=== PATIENT | male | born 1965 | race Caucasian/White ===

== ENCOUNTER 2016-10-25 10:42 | Inpatient (IN) | payer SELFPAY ==
[~2016-10-25] VITALS: Ht 167.6 cm; Wt 77.6 kg
[2016-10-25 11:49] LABS: HEMATOCRIT 41.8 % (42.0-54.0); HEMOGLOBIN 13.9 g/dL (13.5-17.5); MCH 33.1 pg (26.0-34.0); MCHC 33.3 g/dL (31.0-37.0); MCV 99.5 fL (80.0-100.0); PLATELET COUNT 340 10x3/uL (130-400); RDW 13.1 % (11.5-14.5); WBC 22.5 10x3/uL (4.8-10.8)
[2016-10-25 12:01] LABS: ALBUMIN 2.8 g/dL (3.4-5.0); ALKALINE PHOSPHATASE 110 U/L (46-116); ALT (SGPT) 45 U/L (10-68); BILIRUBIN - TOTAL 0.37 mg/dL (0.2-1.3); CALC OSMOLALITY 277 mosm/kg (275-300); CALCIUM 9.4 mg/dL (8.5-10.1); CARBON DIOXIDE 31.8 mmol/L (21.0-32.0); CHLORIDE - SERUM 103 mmol/L (98-107); CREATININE - SERUM 0.9 mg/dL (0.6-1.3); GLUCOSE 117 mg/dL (74-106); POTASSIUM - SERUM 3.9 mmol/L (3.5-5.1); PROTEIN - SERUM 7.5 g/dL (6.4-8.2); SODIUM 140 mmol/L (136-145); UREA NITROGEN 8 mg/dL (7-18); eGFR NON AFRICAN AMERICAN > 90 mL/min (90-120)
[2016-10-25 12:08] LABS: PRO BNP 451 pg/mL (0-125); TROPONIN-I < 0.017 ng/mL (0.000-0.060)
[2016-10-25 12:11] LABS: LYMPHOCYTES 8 % (15-50); MONOCYTES 3 % (2-11); NEUTROPHILS 84 % (40-80); PLATELET ESTIMATE NORMAL
[2016-10-25 16:56] VITALS: BP 159/81; Ht 167.6 cm; Wt 77.6 kg
--- NOTE | 2016-10-25 17:43 | NUR ---
1630- RECEIVED REPORT FROM RITA JACOB IN ER. AWAITING PT ARRIVAL. 1700- PT IS ALERT AND ORIENTED. UP AD AJAY. HX OF ASTHMA. 20G IV SEEN TO LEFT AC. CURRENTLY ON BI-PAP MACHINE. TEMP IS 100.9. DR. VAZ GAVE VERBAL ORDERS FOR TYLENOL. PT IS ON A REGULAR DIET. IV FLUIDS STARTED, NS RUNNING AT 100CC ORDERED. B/P IS 159/81, RR 18, 02 SAT IS 96%, PULSE RATE IS 110. QUICKSTART DONE, ADMISSION HX DONE, PT HAS NO HOME MEDS JUST OTC, ASSESSMENT DONE. WILL CONTINUE TO MONITOR. 1748- DR. LAFLEUR IS IN ROOM WITH PT NOW.
[2016-10-25 19:00] VITALS: BP 112/65
--- NOTE | 2016-10-25 20:13 | NUR ---
PT AWAKE, ALERT, ORIENTED, SITTING ON SIDE OF BED, DENIES ANY ACUTE NEEDS AT THIS TIME. CONTINUE TO MONITOR CLOSELY. BED LOW, CALL LIGHT IN REACH, SIDE RAILS X 2.
--- NOTE | 2016-10-25 23:38 | NUR ---
SPOKE WITH DR. LAFLEUR R/T OBTAINING AN ORDER FOR PRN SLEEP MED. DR. LAFLEUR ORDERED AMBIEN PO Q HS PRN. PT STATES HE IS NOT ALLERGIC, AND DID TAKE IT WITHOUT DIFFICULTY. HE HAD QUESTIONS ABOUT THE BIPAP AND THE REASON FOR IT. I DISCUSSED WITH PT AND HIS THE IMPORTANCE OF BIPAP AND THAT IT IS HELPING REDUCE THE CO2 IN HIS LUNGS R/T HIS INFLAMMATION AND CONSTRICTION. PT AGREED THAT HE UNDERSTANDS, AND DENIES ANY MORE QUESTIONS. CONTINUE TO MONITOR CLOSELY.
[2016-10-26] VITALS: BP 162/91
[2016-10-26 04:00] VITALS: BP 145/81
--- NOTE | 2016-10-26 05:33 | NUR ---
PT CAME TO THE NURSES DESK ASKING FOR THE NEAREST BATHROOM, STATING HIS IS ASLEEP IN THE CHAIR WHICH IS IN FRONT OF THE BATHROOM IN HIS ROOM AND HE DID NOT WANT TO WAKE HER. UPON RETURNING TO HIS ROOM, PT BECAME EXTREMELY DYSPNEIC, TACHYPNEIC, AND OVERALL UNABLE TO WALK ANY FURTHER. WE PLACED PT IN A WHEELCHAIR AND IMMEDIATELY MOVED HIM TO HIS ROOM. I PLACED HIS O2 VIA NC BACK ON HIM, AND INCREASED IT FROM 3LPM TO 5LPM BRINGING HIS O2 SAT UP TO 92%. PT STATED THIS DID HELP HIM FEEL BETTER. PT WAS TRANSFERRED BACK TO HIS BED AFTER APPROXIMATELY 5 MINUTES OF SITTING IN WHEEL CHAIR. I CALLED RESPIRATORY PT STATED HE THOUGHT HE WOULD BENEFIT FROM AN UPDRAFT, BUT RESP WAS UNABLE TO DO ANOTHER UPDRAFT AT THAT TIME BECAUSE IT WAS TOO EARLY. THEY DID PLACE PT BACK ON HIS BIPAP. PT IS CURRENTLY RESTING, IN NO ACUTE DISTRESS, BIPAP ON. CONTINUE TO MONITOR CLOSELY. PT WAS GIVEN A URINAL AND ASKED TO PLEASE NOT GET UP ANYMORE WITHOUT CALLING FOR ASSISTANCE FIRST. PT AGREED TO DO SO.
[2016-10-26 06:07] LABS: BASOPHILS 0.1 % (0.0-2.0); EOSINOPHILS 0 % (0-7); HEMATOCRIT 40.8 % (42.0-54.0); HEMOGLOBIN 13.2 g/dL (13.5-17.5); IMMATURE GRANULOCYTES 0.9 % (0-5); LYMPHOCYTES 3.7 % (15-50); MCH 32.4 pg (26.0-34.0); MCHC 32.4 g/dL (31.0-37.0); MEAN PLATELET VOLUME 9.9 fL (7.4-10.4); MONOCYTES 2.9 % (2-11); NEUTROPHILS 92.4 % (40-80); PLATELET COUNT 353 10x3/uL (130-400); RBC 4.08 10x6/uL (4.20-6.10); RDW 13.4 % (11.5-14.5)
[2016-10-26 06:16] LABS: CALC OSMOLALITY 279 mosm/kg (275-300); CARBON DIOXIDE 29.9 mmol/L (21.0-32.0); CHLORIDE - SERUM 102 mmol/L (98-107); CREATININE - SERUM 0.8 mg/dL (0.6-1.3); GLUCOSE 143 mg/dL (74-106); MAGNESIUM - SERUM 2.3 mg/dL (1.8-2.4); POTASSIUM - SERUM 4.3 mmol/L (3.5-5.1); SODIUM 139 mmol/L (136-145); eGFR NON AFRICAN AMERICAN > 90 mL/min (90-120)
[2016-10-26 06:25] LABS: UREA NITROGEN 12 mg/dL (7-18)
[2016-10-26 08:00] VITALS: BP 134/77
--- NOTE | 2016-10-26 08:00 | NUR ---
INTRODUCED MYSELF TO PT PRIMARY RN FOR TODAYS SHIFT. PT IS ALERT AND RESTING QUIETLY SITTING ON EDGE OF HIS BED. AT BEDSIDE. RR ARE SLIGHTLY LABORED WITH BIPAP IN PLACE. WHEEZING HEARD THROUGHOUT ALL LOBES. PT HAS A L.AC PIV FLUSHED AND IS PATENT, DRSG CDI AND SWAB CAPS IN USE. PT SUPPOSE TO HAVE NS FLUID INFUSING BUT REFUSED R/T NOT WANTING TO BE TIED DOWN. PT IS EATING AND DRINKING FLUIDS SO I KEPT HIM SL. PTS BREAKFAST TRAY HAS NOT BEEN DELIVERED SO I CALLED AND ORDERED PT A TRAY. PT VOICED THANKS AND DENIES ANY FURTHER NEEDS AT THIS TIME, CL IN REACH, WILL CPOC.
--- NOTE | 2016-10-26 08:34 | HP ---
PATIENT: KAUSHAL ARTHUR MEDICAL RECORD: [id number] ACCOUNT: [id number] LOCATION:[address] : [birth year] ADMISSION DATE: 10/25/16 HISTORY AND PHYSICAL EXAMINATION DATE OF ADMISSION: 10/25/2016 CHIEF COMPLAINT: Shortness of breath, wheeze, and malaise. HISTORY OF PRESENT ILLNESS: A 50-year-old white male, smoker, presented to the ER today with 1-week history of some shortness of breath, cough, wheeze, but really got worse yesterday with generalized malaise, aches and pains, difficulty getting out in a bed. He states he "can't breathe." He came in to the ER with a temperature of 99.5 and it went up to about 101. Chest x-ray did not show acute infiltrates. His white count was 22,500 and he is having a lot of wheezing. He is admitted for acute bronchitis and acute asthma exacerbation as a smoker as well as a history of hypertension. PAST MEDICAL AND SURGICAL HISTORY: He was told he had a hypertension about a year ago. He was started on medicine, but states he did not have a primary care doctor to follow back up with any lost of job. PAST SURGICAL HISTORY: None. ALLERGIES: AZITHROMYCIN. 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 He is . HABITS: He smokes about a half pack of cigarettes a day. Denies any alcohol or drug use. FAMILY HISTORY: Father at 52 of a blood clot after surgery. Mother is alive at 80 and she is on oxygen for COPD. HOME MEDICATIONS: None. REVIEW OF SYSTEMS: GENERAL: No major weight changes. HEENT: No particular sinus or allergy problems. RESPIRATORY: Long time smoker. Denies any past diagnosis of emphysema or asthma. CARDIAC: No chest pain or palpitations. GASTROINTESTINAL: No diarrhea, constipation or heartburn. GENITOURINARY: He is complaining of some pain in the left groin area especially when he coughs, he notices a bulge like a hernia. MUSCULOSKELETAL: No significant joint aches and pains. NEUROLOGIC: No headaches or seizure activity. PSYCHIATRIC: No depression or melancholia. PHYSICAL EXAMINATION: VITAL SIGNS: Temperature 100.9, pulse 110, respirations 22, blood pressure 159/81. GENERAL: He is awake and alert, currently on BiPaP. HEENT: Grossly within normal limits. NECK: Supple. No JVD or bruit. HISTORY AND PHYSICAL [id number] ARTHUR,KAUSHAL C HEART: Regular rate and rhythm. LUNGS: Diffuse wheeze bilaterally. ABDOMEN: Soft, flat with him lying down and coughing, feel a little bulge, but nothing significant at this time. EXTREMITIES: No edema. LABORATORY DATA: EKG sinus rhythm at 106 beats per minute. Chest x-ray, no acute infiltrate was seen. ABG showed pH 7.397, pCO2 of 48, pO2 of 59. D-dimer little elevated at 0.79. CBC with a white count of 22,500, hemoglobin 13.9, hematocrit 41.8; 82% polys, 5% bands. Basic metabolic panel is all within normal limits. Liver functions are all normal. Troponin is normal. ProBNP 451. ASSESSMENT: 1. Acute bronchitis. 2. Asthma exacerbation. 3. Hypertension. PLAN: We will admit. Dr. Coulter has already seen the patient for pulmonary, will give him respiratory treatments, start him on some antibiotics, monitor his blood pressure. Other tests and procedures as warranted. TRANSINT:[id number] Voice Confirmation ID: [id number] DOCUMENT ID: [id number] MEENU LAFLEUR MD at 0834 CC: [id number] DICTATION DATE: 10/25/161750 ARCHITECTURAL REPRESENTATIVE: 10/25/16 [address] [facility] [address] [place] [address]
[2016-10-26 09:05] VITALS: BP 159/95
--- NOTE | 2016-10-26 10:23 | NUR ---
PT RESTING IN BED C/O NOT WANTING TO WEAR HIS BIPAP. CALLED RT AND THEY PUT HIS NC BACK ON @5L. WILL CTM.
[2016-10-26 11:59] VITALS: BP 151/80
--- NOTE | 2016-10-26 13:14 | NUR ---
PT RESTING QUIETLY IN BED. PT HAS BEEN ABLE TO SPIT UP SOME THICK YELLOWISH SPUTUM. ENCOURAGED HIM TO CONTINUE DRINKING FLUIDS TO HELP LOOSEN SECRETIONS. PT VERBALIZED UNDERSTANDING. RR NONLABORED WITH NC @5L IN PLACE. CL IN REACH, NO FURTHER NEEDS AT THIS TIME. WILL CTM.
[2016-10-26 15:46] VITALS: BP 135/76
--- NOTE | 2016-10-26 20:08 | NUR ---
PT AWAKE, ALERT, ORIENTED, RECEIVING RESP UPDRAFT, COUGHING AND SPITTING UP LARGE AMOUNTS OF THICK, YELLOW, SPUTUM. I HAVE GIVEN PT A COLLECTION CUP FOR SPUTUM CULTURE. WILL CONTINUE TO MONITOR CLOSELY.
--- NOTE | 2016-10-26 22:01 | NUR ---
PT DID SHOWER THIS EVENING WITH GREAT EFFORT AND ASSISTED BY HIS . PT IS STILL VERY DYSPNEIC WITH MINIMAL EXERTION. CURRENTLY LYING IN BED, AWAKE, ALERT, ORIENTED, IN NO ACUTE DISTRESS, O2 VIA NC IN PLACE. I HAVE COLLECTED A SPUTUM SAMPLE FOR CULTURE. CONTINUE TO MONITOR CLOSELY. BED LOW, CALL LIGHT IN REACH, SIDE RAILS X 2, HOB 35 DEGREES.
--- NOTE | 2016-10-26 22:41 | NUR ---
PT CALLED C/O LARGE AMOUNTS OF BRIGHT RED BLOOD WITH HIS ATTEMPTED BM, NO STOOL PRESENT. PT STATES HE DOES HAVE HEMORRHOIDS, BUT IS NOT HAVING AND BURNING, PAIN, OR BLEEDING BEFORE NOW. PT STATES THERE WAS A LARGE AMOUNT OF BLOOD ON HIS TOILET PAPER WHEN HE WIPED. I GAVE PT A [place] HAT AND HE AGREED TO LET ME KNOW NEXT TIME HE HAS A BM. AT BEDSIDE. PTS LABS ARE STABLE, WILL RECHECK PRN. CONTINUE TO MONITOR CLOSELY. PRN AMBIEN GIVEN PER PTS REQUEST.
[2016-10-27] VITALS: BP 129/71
[2016-10-27 04:00] VITALS: BP 136/78
[2016-10-27 06:03] LABS: BASOPHILS 0.2 % (0.0-2.0); EOSINOPHILS 0.1 % (0-7); HEMATOCRIT 41.2 % (42.0-54.0); HEMOGLOBIN 13.2 g/dL (13.5-17.5); LYMPHOCYTES 12.1 % (15-50); MCH 32.9 pg (26.0-34.0); MCV 102.7 fL (80.0-100.0); MONOCYTES 8.2 % (2-11); NEUTROPHILS 78.4 % (40-80); PLATELET COUNT 366 10x3/uL (130-400); RBC 4.01 10x6/uL (4.20-6.10); RDW 13.7 % (11.5-14.5); WBC 20.8 10x3/uL (4.8-10.8)
[2016-10-27 06:10] LABS: CALC OSMOLALITY 283 mosm/kg (275-300); CALCIUM 8.5 mg/dL (8.5-10.1); CARBON DIOXIDE 33.1 mmol/L (21.0-32.0); CHLORIDE - SERUM 104 mmol/L (98-107); CREATININE - SERUM 0.9 mg/dL (0.6-1.3); GLUCOSE 104 mg/dL (74-106); MAGNESIUM - SERUM 2.1 mg/dL (1.8-2.4); POTASSIUM - SERUM 4.3 mmol/L (3.5-5.1); SODIUM 142 mmol/L (136-145); eGFR NON AFRICAN AMERICAN > 90 mL/min (90-120)
[2016-10-27 06:11] LABS: UREA NITROGEN 16 mg/dL (7-18)
[2016-10-27 07:46] VITALS: BP 129/70
--- NOTE | 2016-10-27 08:45 | NUR ---
PT SITTING UP IN BED RESTING QUIETLY RR NONLABORED WITH NC @5L IN PLACE. PT STATES HE SLEPT MUCH BETTER LAST NIGHT AND BREATHING IS GETTING BETTER. PT HAS NOT HAD A BM HE STATES HE FEELS CONSTIPATED. BS ARE ACTIVE X4 AND HE IS PASSING GAS. ABDOMEN SLIGHTLY DISTENDED AND TIGHT. WILL NOTIFY DOCTOR FOR A PRN SOFTNER. PT ALSO STATES HE HAS HEMORRHOIDS AND REQUESTED SOMETHING. WILL MAKE SURE DOCTOR MIQUEL IS AWARE. NO FURTHER NEEDS AT THIS TIME. CL IN REACH, BED IN LOWEST, SIDE RAILS X2. WILL CPOC.
[2016-10-27 11:37] VITALS: BP 123/78
--- NOTE | 2016-10-27 13:34 | NUR ---
CHANGED PTS L.AC PIV DRSG R/T IT BEING PEELED OFF. APPLIED NEW TEGADERM OVER INSERTION SITE. PIV FLUSHES WITHOUT ANY RESISTANCE AND IS SECURED TO ARM. NO FURTHER NEEDS AT THIS TIME. CL IN REACH, BED IN LOWEST, SIDE RAILS X2. WILL CTM.
--- NOTE | 2016-10-27 18:51 | NUR ---
PT RESTING QUIETLY IN BED DENIES ANY CURRENT PAIN OR NEEDS. CL IN REACH, BED IN LOWEST, SIDE RAILS X2. WILL CTM.
[2016-10-27 19:00] VITALS: BP 173/90
--- NOTE | 2016-10-27 19:33 | NUR ---
PT AWAKE, ALERT, ORIENTED, C/O HIS NOSE BEING STOPPED UP AND DRY. HE DOES HAVE FLONASE, BUT WANTING SOMETHING TO MOISTURIZE WELL. WILL ADD HUMIDITY TO O2 NC AND CALL FOR NS NOSE SPRAY ORDER. PT ALSO STATES HE IS DEVELOPING A HEADACHE. WILL GIVE PRN TYLENOL. CONTINUE TO MONITOR CLOSELY.
[2016-10-28] VITALS: BP 161/79
--- NOTE | 2016-10-28 02:24 | NUR ---
PT LYING IN BED, EYES CLOSED, RESPIRATIONS EVEN AND UNLABORED. CONTINUE TO MONITOR CLOSELY.
[2016-10-28 04:00] VITALS: BP 159/71
[2016-10-28 07:00] LABS: CALC OSMOLALITY 279 mosm/kg (275-300); CALCIUM 8.8 mg/dL (8.5-10.1); CARBON DIOXIDE 31.1 mmol/L (21.0-32.0); CHLORIDE - SERUM 99 mmol/L (98-107); CREATININE - SERUM 0.9 mg/dL (0.6-1.3); GLUCOSE 217 mg/dL (74-106); MAGNESIUM - SERUM 2.2 mg/dL (1.8-2.4); POTASSIUM - SERUM 4.1 mmol/L (3.5-5.1); SODIUM 136 mmol/L (136-145); UREA NITROGEN 14 mg/dL (7-18); eGFR NON AFRICAN AMERICAN > 90 mL/min (90-120)
[2016-10-28 07:07] LABS: BASOPHILS 0 % (0.0-2.0); EOSINOPHILS 0 % (0-7); HEMATOCRIT 42.2 % (42.0-54.0); HEMOGLOBIN 13.7 g/dL (13.5-17.5); IMMATURE GRANULOCYTES 0.8 % (0-5); LYMPHOCYTES 3.1 % (15-50); MCH 32.5 pg (26.0-34.0); MCHC 32.5 g/dL (31.0-37.0); MCV 100.2 fL (80.0-100.0); NEUTROPHILS 94.1 % (40-80); PLATELET COUNT 433 10x3/uL (130-400); RBC 4.21 10x6/uL (4.20-6.10); RDW 13.2 % (11.5-14.5); WBC 26.3 10x3/uL (4.8-10.8)
[2016-10-28 08:02] VITALS: BP 152/110
--- NOTE | 2016-10-28 10:23 | NUR ---
INSERTED 20 GUAGE PIV TO L.FA X1 ATTEMPT. TEGADERM IN PLACE, DATED AND INITIALED AND SWAB CAPS IN USE.
[2016-10-28 11:42] VITALS: BP 146/79
[2016-10-28 16:00] VITALS: BP 122/69
--- NOTE | 2016-10-28 19:20 | NUR ---
PT SITTING UP IN BED WATCHING TV. A/O. NO DISTRESS NOTED. STATES SOB IS IMPROVING. REQUEST H20. CALL LIGHT WITH IN REACH. WILL CONT. TO MONITOR.
[2016-10-28 20:00] VITALS: BP 153/88
--- NOTE | 2016-10-28 22:51 | NUR ---
PT LYING IN BED, AWAKE, ALERT, ORIENTED, IN NO ACUTE DISTRESS, DENIES ANY NEEDS. CONTINUE TO MONITOR CLOSELY. BED LOW, CALL LIGHT IN REACH, SIDE RAILS X 2, HOB 30 DEGREES.
[2016-10-29] VITALS: BP 141/75
--- NOTE | 2016-10-29 00:27 | NUR ---
PT REQUESTED HIS PRN ZOLPIDEM, DENIES ANY OTHER NEEDS. PT STATES HE IS FEELING MUCH BETTER, BUT STILL WEAK AND STILL EXPERIENCING ACUTE DYSPNEA WITH EXERTION. CONTINUE TO MONITOR CLOSELY. BED LOW, CALL LIGHT IN REACH, SIDE RAILS X 2, HOB 30 DEGREES.
[2016-10-29 04:00] VITALS: BP 163/90
[2016-10-29 06:16] LABS: BASOPHILS 0.1 % (0.0-2.0); EOSINOPHILS 0 % (0-7); HEMATOCRIT 42.2 % (42.0-54.0); IMMATURE GRANULOCYTES 0.9 % (0-5); LYMPHOCYTES 3.3 % (15-50); MCH 32.9 pg (26.0-34.0); MCHC 33.2 g/dL (31.0-37.0); MCV 99.1 fL (80.0-100.0); MEAN PLATELET VOLUME 9.8 fL (7.4-10.4); MONOCYTES 2.9 % (2-11); NEUTROPHILS 92.8 % (40-80); PLATELET COUNT 433 10x3/uL (130-400); RBC 4.26 10x6/uL (4.20-6.10); RDW 13.2 % (11.5-14.5); WBC 26.6 10x3/uL (4.8-10.8)
[2016-10-29 06:31] LABS: CALC OSMOLALITY 277 mosm/kg (275-300); CALCIUM 9.1 mg/dL (8.5-10.1); CARBON DIOXIDE 31.8 mmol/L (21.0-32.0); CHLORIDE - SERUM 101 mmol/L (98-107); CREATININE - SERUM 0.9 mg/dL (0.6-1.3); POTASSIUM - SERUM 4.3 mmol/L (3.5-5.1); SODIUM 138 mmol/L (136-145); UREA NITROGEN 16 mg/dL (7-18); eGFR NON AFRICAN AMERICAN > 90 mL/min (90-120)
[2016-10-29 06:32] LABS: GLUCOSE 123 mg/dL (74-106)
[2016-10-29 08:02] VITALS: BP 144/86
--- NOTE | 2016-10-29 09:35 | NUR ---
ADMINISTERED MORNING MEDICATIONS. PT IS ALERT AND ORIENTED SITTING UP IN BED RESTING QUIETLY WATCHING TV. RR NONLABORED WITH NC @5L IN PLACE. PT STATES HE SLEPT WELL BUT HAS BEEN HAVING A LINGERING DELGADO. PROVIDED PT WITH PRN TYLENOL REQUESTED. CONNECTED PT TO IV FLUIDS TO RUN HIS IVPB ANBX. PT DENIES ANY FURTHER NEEDS AT THIS TIME. CL IN REACH, BED IN LOWEST, SIDE RAILS X2. WILL CPOC.
--- NOTE | 2016-10-29 10:53 | NUR ---
Patient Name: KAUSHAL ARTHUR Admission Status: ER Accout number: [id number] Admission Date: 10-25-2016 : 1965 Admission Diagnosis:SHORTNESS OF BREATH Attending: NELLY Current LOS: 4 Anticipated DC Date: Planned Disposition: Primary Insurance: UNINSURED DISCOUNT PLAN Discharge Planning Comments: CM met with patient to discuss discharge planning/needs. The patient currently wearing BiPAP although he states he did not wear oxygen prior to this admission. He states he resides with his spouse "Monique Arthur" ([phone]) in their apartment. He states their apartment is on the second floor requiring climbing 2 flights of stairs to reach front door. The patient states he was independent of all ADL's prior to this admission. He states he feels he needs a sleep study and "would feel better if I had a BiPAP and oxygen at home". He states his apartment is safe to return to. His caregiver after discharge and transportation home will be his spouse "Monique Arthur"([phone]). CM will follow and assist with discharge planning/needs. Pneumatic System Conveyor Operator: Angie Og RN/CM * Is the patient Alert and Oriented? Yes 0 * How many steps to enter\\exit or inside your home? 2 flights 0 * PCP Dr. Atkinson 0 * Pharmacy [facility] ([facility]ahn) [phone] 0 * Preadmission Environment Home with Family 0 * ADLs Independent 0 * Equipment None 0 * List name and contact numbers for known caregivers / representatives who currently or will assist patient after discharge: Monique Arthur (spouse) [phone] 0 * Community resources currently utilized None 0 * Additional services required to return to the preadmission environment? Yes 0 * Can the patient safely return to the preadmission environment? Yes 0 * Has this patient been hospitalized within the prior 30 days at any hospital? No 0 Grand Total: 0
[2016-10-29 12:14] VITALS: BP 147/82
--- NOTE | 2016-10-29 13:03 | NUR ---
Nutrition follow-up: Diet: Regular PO intake ~75% average of last 6 meals Labs reviewed +BM Wt: 180# PO intake is good at this time. Will continue to provide food choices with selective menus and honor food preferences. RDN following.
[2016-10-29 16:23] VITALS: BP 122/68
--- NOTE | 2016-10-29 19:50 | NUR ---
RESUME CARE, 11-15L, IV-LFA-SL, PT REFUSING FLUID VIA IV, UP TO RESTROOM, DENIES ANY NEEDS, CALL LIGHT IN REACH, WILL CONTINUE TO MONITOR
[2016-10-29 20:00] VITALS: BP 185/85
[2016-10-30] VITALS: BP 161/84
[2016-10-30 04:00] VITALS: BP 145/85
--- NOTE | 2016-10-30 04:05 | NUR ---
BUILDING ENGINEER AT BEDSIDE TO OBTAIN VITALS, CALL LIGHT IN REACH. WILL CONTINUE TO MONITOR.
--- NOTE | 2016-10-30 04:18 | NUR ---
SLEEPING, O2 ON 5L, BED IS LOW, SRX2, CALL LIGHT IN REACH
[2016-10-30 06:22] LABS: BASOPHILS 0.1 % (0.0-2.0); EOSINOPHILS 0 % (0-7); HEMATOCRIT 44.1 % (42.0-54.0); HEMOGLOBIN 14.4 g/dL (13.5-17.5); IMMATURE GRANULOCYTES 1.4 % (0-5); LYMPHOCYTES 3.5 % (15-50); MCH 32.3 pg (26.0-34.0); MCHC 32.7 g/dL (31.0-37.0); MCV 98.9 fL (80.0-100.0); MEAN PLATELET VOLUME 9.5 fL (7.4-10.4); MONOCYTES 3.8 % (2-11); NEUTROPHILS 91.2 % (40-80); PLATELET COUNT 446 10x3/uL (130-400); RBC 4.46 10x6/uL (4.20-6.10); RDW 13.1 % (11.5-14.5); WBC 25.1 10x3/uL (4.8-10.8)
[2016-10-30 06:46] LABS: CALC OSMOLALITY 278 mosm/kg (275-300); CALCIUM 8.9 mg/dL (8.5-10.1); CHLORIDE - SERUM 100 mmol/L (98-107); CREATININE - SERUM 0.9 mg/dL (0.6-1.3); GLUCOSE 153 mg/dL (74-106); MAGNESIUM - SERUM 2.2 mg/dL (1.8-2.4); POTASSIUM - SERUM 4.3 mmol/L (3.5-5.1); SODIUM 137 mmol/L (136-145); UREA NITROGEN 18 mg/dL (7-18); eGFR NON AFRICAN AMERICAN > 90 mL/min (90-120)
[2016-10-30 07:51] VITALS: BP 143/81
--- NOTE | 2016-10-30 08:11 | NUR ---
AM ROUNDING- PT LAYING IN BED ON BACK WITH BI-PAP MACHINE ON. ON EP. IV SEEN TO LEFT FOREARM THAT IS SALINE LOCKED AND PATENT. NO MONITOR. PER REPORT FROM TROUBLE OPERATOR NURSE, ALEXIS PT REFUSES IV FLUIDS UNLESS GETTING IV ANTIBIOTICS WITH THEM. PT IS UP AD AJAY PER REPORT. ON LOVENOX INJECTION FOR DVT PREVENTION. NO NEED AT CURRENT TIME. WILL CONTINUE TO MONITOR.
[2016-10-30 12:00] VITALS: BP 145/65
--- NOTE | 2016-10-30 12:54 | NUR ---
PTS IV TO LEFT FOREARM IS LEAKING AND HARD TO TOUCH. MINDY GARBER, RN RE SITED PT TO LEFT WRIST WITH 22G IV X 2 STICK. TOLERATED WELL. OLD IV TO LEFT FOREARM REMOVED WITH CATH TIP INTACT. WILL CONTINUE TO MONITOR.
[2016-10-30 15:58] VITALS: BP 146/96
--- NOTE | 2016-10-30 18:02 | NUR ---
PT SITTING UP IN BED. FAMILY MEMBERS AT BEDSIDE. NO NEED AT CURRENT TIME. WILL CONTINUE TO MONITOR.
--- NOTE | 2016-10-30 19:21 | NUR ---
RESUMED CARE, 5L, IV-L.HAND-SL, DENIES ANY NEEDS, CALL LIGHT IN REACH, BED IS LOW, SRX2, WILL CONTINUE TO MONITOR
[2016-10-30 20:00] VITALS: BP 139/72
--- NOTE | 2016-10-31 01:50 | NUR ---
PT RESTING SOUNDLY WITHOUT C/O OR DISTRESS NOTED. CALL LIGHT WITHIN REACH. WILL CONT TO MONITOR.
[2016-10-31 04:00] VITALS: BP 146/83
--- NOTE | 2016-10-31 04:12 | NUR ---
SLEEPING, CALL LIGHT IN REACH
[2016-10-31 06:45] LABS: MAGNESIUM - SERUM 2.2 mg/dL (1.8-2.4)
--- NOTE | 2016-10-31 07:29 | NUR ---
AM ROUNDING- PT SITTING UP IN BED WITH EYES CLOSED RESTING. ON EP. IV SEEN TO LEFT HAND THAT IS SALINE LOCKED AND PATENT. ON 5L OF 02 VIA NC. BIPAP IS AT BEDSIDE. ON LOVENOX INJECTION FOR DVT PREVENTION. NO NEED AT CURRENT TIME. WILL CONTINUE TO MONITOR.
[2016-10-31 08:02] VITALS: BP 164/86
--- NOTE | 2016-10-31 11:01 | NUR ---
1030- PT REQUESTED FOR ME TO RETAPE HIS IV TO HIS LEFT HAND BECAUSE THE TAPE KEPT COMING OFF. UPON RETAPING HIS IV, THE IV CAME OUT WITH CATH TIP INTACT. RESITED PTS IV TO RIGHT HAND WITH 20G X 1 STICK. TOLERATED WELL.
[2016-10-31 11:18] VITALS: BP 129/77
[2016-10-31 15:50] VITALS: BP 116/57
--- NOTE | 2016-10-31 18:05 | NUR ---
PT SITTING UP IN BED WATCHING TV. FAMILY MEMBERS JUST ARRIVED. NO NEED AT CURRENT TIME. WILL CONTINUE TO MONITOR.
--- NOTE | 2016-10-31 19:20 | NUR ---
RESUMED CARE OF PT, DENIES ANY NEEDS, VISITING WITH FAMILY, 02-5L, IV-R.HAND-SL, BED IS LOW, SRX2,CALL LIGHT IN REACH,WILL CONTINUE TO MONITOR
[2016-10-31 20:28] VITALS: BP 123/82
--- NOTE | 2016-10-31 23:09 | NUR ---
PT LAYING IN BED NO DISTRESS OBSERVED CALL LIGHT INR EACH SRX2 BED LOW AND LOCKED WILL MONITOR
[2016-11-01 00:19] VITALS: BP 126/77
--- NOTE | 2016-11-01 04:59 | NUR ---
SLEEPING, HAS 02-ON, CALL LIGHT IN REACH
[2016-11-01 05:17] VITALS: BP 135/78
--- NOTE | 2016-11-01 07:10 | NUR ---
RECEIVED REPORT. ASSUMED CARE OF PATIENT. CALL LIGHT WITHIN REACH. PATIENT GETTING OUT OF BED THIS AM, COMPLAINS OF BACK PAIN FROM LYING AROUND IN THE BED FOR A WEEK. RESP EVEN AND UNLABORED. DRY COUGH NOTED, NO SPUTUM PRODUCTION. DENIES NEEDS AT THIS TIME. NO DISTRESS.
[2016-11-01 07:41] VITALS: BP 130/74
--- NOTE | 2016-11-01 09:45 | NUR ---
PATIENT OOB, AMBULATING IN HALLWAY. DENIES NEEDS. NO DISTRESS. CALL LIGHT WITHIN REACH.
[2016-11-01 11:23] VITALS: BP 121/64
--- NOTE | 2016-11-01 12:00 | NUR ---
RESTING WITH EYES CLOSED. RESP EVEN AND UNLABORED. NO DISTRESS. CALL LIGHT WITHIN REACH.
[2016-11-01 15:24] VITALS: BP 120/72
--- NOTE | 2016-11-01 16:00 | NUR ---
SITTING TO SIDE OF BED. CALL LIGHT WITHIN REACH. ATTENTION TOWARD CELLPHONE. NO DISTRESS. DENIES NEEDS.
[2016-11-01 19:00] VITALS: BP 149/81
--- NOTE | 2016-11-01 19:46 | NUR ---
RESUMED CARE OF PT, SITTING ON SIDE OF BED, DENIES ANY NEEDS, 02-4L, IV-R.HAND-SL, CALL LIGHT IN REACH, WILL CONTINUE TO MONITOR
[2016-11-02] VITALS (7 sets, daily range): BP systolic 133–160; BP diastolic 67–81
--- NOTE | 2016-11-02 03:50 | NUR ---
SLEEPING, 02 IS ON, CALL LIGHT IN REACH,
--- NOTE | 2016-11-02 05:59 | NUR ---
NO CHANGES FROM PREVIOUS ASSESSMENT, CALL LIGHT IN REACH. WILL CONTINUE WITH PLAN OF CARE.
[2016-11-02 06:10] LABS: BASOPHILS 0.1 % (0.0-2.0); EOSINOPHILS 0 % (0-7); HEMOGLOBIN 14.3 g/dL (13.5-17.5); IMMATURE GRANULOCYTES 2.4 % (0-5); LYMPHOCYTES 2.4 % (15-50); MCH 32.1 pg (26.0-34.0); MCHC 32.5 g/dL (31.0-37.0); MCV 98.9 fL (80.0-100.0); MEAN PLATELET VOLUME 9.8 fL (7.4-10.4); MONOCYTES 6.2 % (2-11); NEUTROPHILS 88.9 % (40-80); PLATELET COUNT 435 10x3/uL (130-400); RBC 4.45 10x6/uL (4.20-6.10); RDW 13.5 % (11.5-14.5); WBC 26.5 10x3/uL (4.8-10.8)
[2016-11-02 06:11] LABS: CALC OSMOLALITY 278 mosm/kg (275-300); CARBON DIOXIDE 29.2 mmol/L (21.0-32.0); CHLORIDE - SERUM 101 mmol/L (98-107); CREATININE - SERUM 0.9 mg/dL (0.6-1.3); GLUCOSE 142 mg/dL (74-106); PHOSPHOROUS 3.7 mg/dL (2.5-4.9); POTASSIUM - SERUM 4.5 mmol/L (3.5-5.1); SODIUM 137 mmol/L (136-145); UREA NITROGEN 20 mg/dL (7-18); eGFR NON AFRICAN AMERICAN > 90 mL/min (90-120)
--- NOTE | 2016-11-02 07:30 | NUR ---
RESTING QUIETLY NAD NOTED DENIESANY NEEDS OR DISCOMFORT
--- NOTE | 2016-11-02 08:01 | NUR ---
ASSESSMENT DONE. PT A/O. AMB IN [place]. PT HAS ALREADY SHOWERED. STATES SOB HAS IMPROVED. WANTS TO GO HOME. DENIES NEEDS. NO DISTRESS NOTED. CALL LIGHT WITH IN REACH. WILL CONT. TO MONITOR.
--- NOTE | 2016-11-02 11:25 | NUR ---
PT SITTING UP ON SIDE OF BED VISITING WITH FAMILY. NO DISTRESS NOTED. DENIES NEEDS. WILL CONT. TO MONITOR.
--- NOTE | 2016-11-02 14:58 | NUR ---
PT CALLED NURSE TO ROOM AND STATES " I FEEL LIKE I HAVE SORES IN MY MOUTH AND IN THE BACK OF MY THROAT." NURSE INSPECTED PT'S MOUTH AND NOTED SMALL WHITE PATCHES IN PT'S MOUTH AND THROAT. ORDER REC'D FOR NYSTATIN SWISH AND SWALLOW, SEE MAR. WILL CONT TO MONITOR.
--- NOTE | 2016-11-02 17:34 | NUR ---
PT SITTING UP ON SIDE OF BED. A/O. VISITING WITH FAMILY. NO DISTRESS NOTED. CALL LIGHT WITH IN REACH. PT DENIES NEEDS AT THIS TIME. WILL CONT. TO MONITOR.
--- NOTE | 2016-11-02 18:10 | NUR ---
PT O2 SAT 95% WITH O2 AT 4L VIA NC. PT AMBULATED AROUND UNIT ON ROOM AIR AND O2 SAT REMAINED 94%. PT DENIES SOB. C/O SLIGHT DIZZINESS D/T BEING IN BED SO LONG. WILL CONT. TO MONITOR.
--- NOTE | 2016-11-02 19:46 | NUR ---
RESUMED CARE OF PT, SITTING ON SIDE OF BED, DENIES ANY NEEDS, 02-4L, IV-R.HAND-SL, CALL LIGHT IN REACH, WILL CONTINUE TO MONITOR
--- NOTE | 2016-11-03 03:33 | NUR ---
COMPLAINED OF PAIN IN LEGS. MEDICATED WITH ULTRAM PO.
[2016-11-03 05:12] VITALS: BP 141/80
--- NOTE | 2016-11-03 07:00 | NUR ---
PT WAS RECEIVED AT THE BEGINNING OF THIS SHIFT IN BED AWAKE AND ORIENTED X 3. NO SIGNS OF ANY DISCOMFORT OR DISTRESS. NO VOICED COMPLAINTS. RT. HAND IV THAT IS SALINE LOCKED. 4L O2/NC. WILL BE MONITORING AND ASSISTING PRN WITH ADL'S.
[2016-11-03 08:31] VITALS: BP 153/84
--- NOTE | 2016-11-03 09:48 | NUR ---
ORDERED WALK TEST WAS PERFORMED BY UMA HERNANDEZ CRT AND REPORTED TO MILLI. WALK TEST DOCUMENTATION FORM PLACED IN PT'S CHART WITH RESULTS FOLLOWS: RESTING ROOM AIR SPO2: 90% ROOM AIR SPO2 WITH EXERCISE/AMBULATION: 91% SPO2 ON 2L NC WITH EXERCISE/AMBULATION: 94% CM WILL INFORM DR VAZ OF WALK TEST RESULTS.
--- NOTE | 2016-11-03 10:45 | NUR ---
Patient Name: KAUSHAL ARTHUR Encounter No: [id number] : 1965 Primary Insurance: UNINSURED DISCOUNT PLAN Anticipated DC Date: 11-03-2016 Planned Disposition: Home DCP follow-up note: CM SPOKE TO PT IN ROOM REGARDING DISCHARGE NEEDS AND PLANNING. PT REPORTS THAT THE HOSPITAL BUSINESS OFFICE IS GOING TO LOOK OVER HIS FINANCIALS TO SEE IF THEY CAN HELP FILE FOR MEDICAID TO ASSIST PT. PT REPORTS HE WALK TESTED IN THE HALLWAY AND DID NOT QUALIFY FOR HOME OXYGEN. PT HAS NO PREFERENCE ON EQUIPMENT PROVIDER IF HE NEEDS A NEBUILZER FOR DISCHARGE HOME PT DOES NOT HAVE ONE NOW. PT DENIES FURHTER DISCHARGE NEEDS, SPOUSE TO PICK HIM UP FOR DISCHARGE HOME. PT DOES NOT HAVE A NEBULIZER AND WILL REQUIRE DOCTORS ORDER FOR HOME NEBULIZER FOR CM TO ARRANGE IF NEEDED. Stefan Lala, CASE MANAGEMENT
[2016-11-03 11:42] VITALS: BP 128/80
[2016-11-03] MEDS ORDERED: LISINOPRIL10 MG PO (13:31)
--- NOTE | 2016-11-03 14:27 | NUR ---
DR. LAFLEUR ROUNDED THIS AFTERNOON AND NEW ORDER RECEIVED FOR A DISCHARGE.
--- NOTE | 2016-11-03 14:30 | NUR ---
Patient Name: KAUSHAL ARTHUR Encounter No: [id number] : 1965 Primary Insurance: UNINSURED DISCOUNT PLAN Anticipated DC Date: 11-03-2016 Planned Disposition: Home DCP follow-up note: CM RECEIVED PRESCRIPTION FOR NEBULIZER AND NEBULIZER MEDICATIONS. CM CALLED [facility], $90 FOR NEBULIZER; CM CALLED [facility], $49 FOR NEBULIZER; CM CALLED [facility], $89 FOR NEBULIZER . CM CALLED [facility] WHO PROVIDED [place] OF $50 FOR MACHINE AND STARTER MEDICATIONS. CM NOTIFIED PT, PROVIDED SIGNED PRESCRIPTION TO PT, NOTIFIED OF [place] AT [facility] FOR NEBULIZER AND MEDICATIONS. PT DENIES FURTHER DISCHARGE NEEDS, HIS TO PICK HIM UP FOR DISCHARGE HOME. Stefan Lala, CASE MANAGEMENT
[2016-11-03] MEDS ORDERED: SYMBICORT 16010.2 GM INH (14:39)
[2016-11-03] MEDS ORDERED: IPRAT-ALBUT 0.5-3 ML UPD (14:39)
[2016-11-03] MEDS ORDERED: SINGULAIR10 MG PO (14:40)
[2016-11-03] MEDS ORDERED: PREDNISONE10 MG PO (14:42)
[2016-11-03 15:51] VITALS: BP 135/76
--- NOTE | 2016-11-03 16:38 | NUR ---
IV TO LEFT HAND DCD CATH INTACT.
--- NOTE | 2016-11-04 09:13 | CN ---
PATIENT NAME:KAUSHAL ARTHUR MEDICAL RECORD: [id number] : 69 LOCATION:[facility] D.2136 ADMIT DATE: 10/25/16 ACCOUNT: [id number] CONSULTING PHYSICIAN: RAYO VAZ MD REFERRING PHYSICIAN: CARLITO LAFLEUR MD DATE OF CONSULTATION: 10/25/2016 CONSULT REQUESTING PHYSICIAN: Dr. Carlito Lafleur. REASON FOR CONSULTATION: Acute COPD, asthma exacerbation. HISTORY OF PRESENT ILLNESS: Mr. Arthur is a 50-year-old gentleman who has a history of childhood asthma. He is also smoking half-pack per day since early teenage. According to the patient, he is sick for the last 1 week. He is coughing. He has shortness of breath, has congestion in his chest. This morning, his shortness of breath was getting worse and the patient came in to the ER. He also was running fever of 102. He is coughing with white to yellow color sputum production. He hears himself wheezing. REVIEW OF SYSTEMS: CONSTITUTIONAL: He has fever. HEENT: Sinus congestion. RESPIRATORY: As in history of present illness. CARDIOVASCULAR: No chest pain. GASTROINTESTINAL: Negative. GENITOURINARY: Negative. Other review of the systems is negative at this point. PAST MEDICAL HISTORY: 1. History of childhood asthma, the congestion has been improved. 2. Hypertension. 3. Tobacco dependence syndrome. PAST SURGICAL HISTORY: Nonsignificant. ALLERGIES: HE IS ALLERGIC TO AZITHROMYCIN. PRESENT MEDICATIONS: He is on albuterol inhaler p.r.n. and lisinopril. PERSONAL AND SOCIAL HISTORY: The patient is smoking almost half pack per day since teenage. He is still an everyday smoker. He is a nondrinker. FAMILY HISTORY: Noncontributory. PHYSICAL EXAMINATION: GENERAL: Now, the patient is lying comfortably. He is not in acute distress. VITAL SIGNS: The blood pressure is 147/83, pulse is 103, respiration is 29, temperature 99.5, SPO2 was 91% on room air. HEENT: Conjunctivae pink, sclerae nonicteric. NECK: Supple, no JVD. CHEST: Excursion is minimal on both sides, prolonged expiratory wheezing. HEART: Rhythm regular, normal sound, no murmur. ABDOMEN: Soft, bowel sounds present. No hepatosplenomegaly. RECTAL: Deferred. EXTREMITIES: No cyanosis, no clubbing, no pedal edema. CONSULT REPORT [id number] KAUSHAL ARTHUR SKIN: Warm, normal turgor. CENTRAL NERVOUS SYSTEM: The patient is awake and alert. There are no obvious cranial nerve abnormality. The gait was not tested. LABORATORY DATA: CBC: WBC 22.5, hemoglobin 13.9, hematocrit 41.8, platelet count 340. Chemistry: Sodium is 140, potassium 3.9, BUN is 8, creatinine 0.9, glucose 117. ABG: The pH was 7.40, pCO2 was 49, pO2 was 71, bicarbonate 30.6. This was done on a 3 liter nasal cannula. IMAGING: Chest radiograph, there is hyperinflation. IMPRESSION: 1. Acute hypoxic respiratory failure. 2. Acute exacerbation of chronic obstructive pulmonary disease. 3. Asthma-chronic obstructive pulmonary disease overlap syndrome. 4. Tobacco dependence syndrome. 5. Tracheobronchitis. 6. Leukocytosis. 7. Hypertension. 8. Febrile illness possible fluid, though the test was negative. RECOMMENDATION: Methylprednisolone IV, albuterol and ipratropium nebulizer q.4 hourly, Brovana, budesonide nebulizer b.i.d., Singulair 10 mg b.i.d. Check alpha 1 level. Follow labs and chest radiograph in the morning. Discussed with Dr. Lafleur. Dr. Lafleur, once again thanks for involving me in the care of Mr. Arthur. TRANSINT:[id number] Voice Confirmation ID: [id number] DOCUMENT ID: [id number] RAYO VAZ MD at 0913 CC: CARLITO LAFLEUR MD [id number] DICTATION DATE: 10/25/161740 CONFIDENTIAL SECRETARY: 10/25/161915 DIS IN 11/03/16 [facility] [address] [place] [address]
== END 2016-11-03 16:55 | disposition home or self-care (01) | DRG 189 ==
LOC: D.ER 10:42 → D.M2 14:48
PROVIDERS: Emergency Medicine; Internal Medicine Pulmonary Disease; Nurse Practitioner Family; ADMIT Family Medicine
PROC: 5A09557 Assistance with Respiratory Ventilation, Greater than 96 Consecutive Hours, Continuous Positive Airway Pressure (ICD-10-PCS; principal; 2016-10-25)
DX: J96.01 Acute respiratory failure with hypoxia (principal); J44.0 Chronic obstructive pulmonary disease with (acute) lower respiratory infection; J45.901 Unspecified asthma with (acute) exacerbation; J44.1 Chronic obstructive pulmonary disease with (acute) exacerbation; F17.200 Nicotine dependence, unspecified, uncomplicated; J20.9 Acute bronchitis, unspecified; I10 Essential (primary) hypertension; R51 Headache; J11.1 Influenza due to unidentified influenza virus with other respiratory manifestations

== ENCOUNTER 2017-05-19 13:19 | Inpatient (IN) | payer SELFPAY ==
[~2017-05-19] VITALS: Ht 167.6 cm; Wt 81.8 kg
--- NOTE | ~2017-05-19 | CN ---
PATIENT NAME:KAUSHAL ARTHUR MEDICAL RECORD: [id number] : 69 LOCATION:D.MS Gutierrez2225 ADMIT DATE: 05/20/17 ACCOUNT: [id number] CONSULTING PHYSICIAN: MARTHA RICKS MD REFERRING PHYSICIAN: MEENU LAFLEUR MD DATE OF CONSULTATION: 05/20/2017 CHIEF COMPLAINT: Hernia. HISTORY OF PRESENT ILLNESS: The patient has left inguinal hernia. It is longstanding. He has undergone a CT scan. I have personally reviewed the CT images. I personally reviewed the CT report. I have discussed the case personally with Dr. Cramer, the Emergency Room physician. There was some stranding down in the left scrotum around the sigmoid colon that is in the left hemiscrotum and this may indicate some degree of inflammation or ischemia. Therefore, his need for left inguinal hernia repair with mesh is fairly urgent. His pain is 8/10. The hernia interestingly is easily reducible. He states he has had the hernia for about 6 months. Palpation and attempts to reduce aggravate it. Nothing alleviates it. REVIEW OF SYSTEMS: No diaphoresis, no fever, no chills, no shortness breath, no congestion, no wheezing, no hemoptysis, no cough. Positive for abdominal pain. Positive for diarrhea. Positive for nausea. No vomiting, no back pain. The review of systems is negative other than as is described above. PAST MEDICAL AND SURGICAL HISTORY: Asthma, bronchitis, hypertension. FAMILY HISTORY: Noncontributory. SOCIAL HISTORY: Social alcohol use, no illicit drug use. He is a laborer carpentry dock. HOME MEDICINES: Lisinopril. ALLERGIES: Z-FABIAN AND STEROIDS. PHYSICAL EXAMINATION: GENERAL: The patient does not appear acutely ill. He does appear chronically ill. VITAL SIGNS: Reviewed. EARS: External ears appear normal. HEENT: Poor dentition. There is a lesion involving the upper gingiva, which may be severe gingivitis, malignancy or an abscess. NECK: Trachea is midline. CHEST: No intercostal retractions. PULMONARY: Nonlabored, no stridor. ABDOMEN: As described above. GENITOURINARY: Distended testicles. Reducible left inguinal hernia. 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 INTEGUMENT: No rash other than the condyloma acuminata. BACK: No thoracic kyphosis. LYMPHATICS: No lymphangitic streaking of the exposed extremities. NEUROLOGIC: Nonfocal, no lethargy. The patient answers questions appropriately, moves all extremities well. PSYCHIATRIC: Normal affect. CONSULT REPORT [id number] KAUSHAL ARTHUR IMPRESSION: Left inguinal hernia, reducible, with worrisome CT findings. PLAN: Open left inguinal hernia repair with mesh. The risks, possible complications and alternatives to procedure were explained to the patient. He elects to proceed. TRANSINT:[id number] Voice Confirmation ID: [id number] DOCUMENT ID: [id number] MARTHA RICKS MD CC: [id number] DICTATION DATE: 05/20/172108 PROJECT DRILLING ENGINEER: 05/20/172200 ADM IN [facility] [address] [id number]
[~2017-05-19 13:19] MED LIST: IPRAT-ALBUT 0.5-3 ML UPD; LISINOPRIL10 MG PO; PREDNISONE10 MG PO; SINGULAIR10 MG PO; SYMBICORT 16010.2 GM INH
[2017-05-19 14:27] LABS: BASOPHILS 0.3 % (0-2); EOSINOPHILS 0.9 % (0-7); HEMATOCRIT 50.1 % (42.0-54.0); HEMOGLOBIN 17.5 g/dL (13.5-17.5); IMMATURE GRANULOCYTES 0.5 % (0-5); LYMPHOCYTES 23.1 % (15-50); MCH 32.7 pg (26.0-34.0); MCHC 34.9 g/dL (31.0-37.0); MCV 93.6 fL (80.0-100.0); MEAN PLATELET VOLUME 9.7 fL (7.4-10.4); MONOCYTES 9.2 % (2-11); RBC 5.35 10x6/uL (4.20-6.10); RDW 12.7 % (11.5-14.5); WBC 8.7 10x3/uL (4.8-10.8)
[2017-05-19 14:29] LABS: PLATELET COUNT 252 10x3/uL (130-400)
[2017-05-19 14:38] LABS: ALBUMIN 3.8 g/dL (3.4-5.0); ALKALINE PHOSPHATASE 116 U/L (46-116); ALT (SGPT) 80 U/L (10-68); BILIRUBIN - TOTAL 0.58 mg/dL (0.2-1.3); CALC OSMOLALITY 271 mosm/kg (275-300); CALCIUM 8.7 mg/dL (8.5-10.1); CARBON DIOXIDE 27.9 mmol/L (21.0-32.0); CHLORIDE - SERUM 98 mmol/L (98-107); GLUCOSE 122 mg/dL (74-106); POTASSIUM - SERUM 4.4 mmol/L (3.5-5.1); PROTEIN - SERUM 7.6 g/dL (6.4-8.2); SODIUM 135 mmol/L (136-145); UREA NITROGEN 15 mg/dL (7-18); eGFR NON AFRICAN AMERICAN 84 mL/min (90-120)
[2017-05-19 14:43] LABS: APPEARANCE CLEAR (CLEAR); BACTERIA FEW /hpf (NONE SEEN); BILIRUBIN NEGATIVE (NEGATIVE); COLOR YELLOW (YELLOW); GLUCOSE NEGATIVE (NEGATIVE); KETONE NEGATIVE (NEGATIVE); LEUKOCYTE ESTERASE NEGATIVE (NEGATIVE); NITRITE NEGATIVE (NEGATIVE); PROTEIN TRACE mg/dL (NEGATIVE); RED CELLS - URINE OCC /hpf (0-5); UROBILINOGEN NORMAL (NORMAL)
[2017-05-19 20:00] VITALS: BP 158/100
--- NOTE | 2017-05-19 20:00 | NUR ---
PT RESTING IN BED AND DENIES NEEDS AT THIS TIME. BED IN LOWEST POSITION AND CALL LIGHT WITHIN REACH. ENCOURAGED THE PT TO CALL IF HE HAS NEEDS.
[2017-05-20] VITALS (12 sets, daily range): BP systolic 144–192; BP diastolic 86–131; Ht 167.6 cm; Wt 81.8 kg
--- NOTE | 2017-05-20 07:30 | NUR ---
RECIEVED PT DURING WALKING ROUNDS. PT RESTING IN BED WITH COMPLAINTS OF PAIN OF A 5 ON A SCALE OF 1-10. NO MEDICATION TO BE GIVEN AT THIS TIME. ASSESSMENT DONE PER FLOWSHEET. BED IN LOW POSITION AND CALL LIGHT WITHIN REACH. WILL CONTINUE TO MONITOR.
--- NOTE | 2017-05-20 08:51 | HP ---
PATIENT: KAUSHAL ARTHUR MEDICAL RECORD: [id number] ACCOUNT: [id number] LOCATION:D.MS Gutierrez2225 : 69 ADMISSION DATE: 05/19/17 HISTORY AND PHYSICAL EXAMINATION DATE OF ADMISSION: 05/19/2017. CHIEF COMPLAINT: Left lower quadrant abdominal pain. HISTORY OF PRESENT ILLNESS: This is a 51-year-old white male who I saw for the first time in October of this year when he presented to the hospital on an unassigned call with asthma and bronchitis. He also had high blood pressure at that time. He did tell me back then that he was having some pain off and on in the left lower quadrant and while there was a very mild bulge there, it is nothing like that now. He has had worsening symptoms in the left lower quadrant over the last several weeks, and he was able to reduce the swelling. He came to the ER today where his lab was fairly unremarkable except mildly elevated liver enzymes. A CT of the abdomen and pelvis showed a left inguinal hernia containing portions of the sigmoid colon with inflammation adjacent to the bowel. This could indicate entrapment of bowel, possibly early changes of ischemia. He is admitted for further treatment. PAST MEDICAL HISTORY: Again, he was admitted into the hospital on October 25 with bronchitis and acute asthma attack. He also had hypertension, had not been on medicines for a while. PAST SURGICAL HISTORY: Really unremarkable. ALLERGIES: ZITHROMAX. HOME MEDICATIONS: Lisinopril 20 mg once a day. 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 HABITS: He did quit smoking since the last visit. No alcohol or drug use. FAMILY HISTORY: Father at 52 of a blood clot after surgery. Mother is alive at 80. She is on oxygen for COPD. REVIEW OF SYSTEMS: GENERAL: No major weight changes. HEENT: No particular sinus or allergy problems. RESPIRATORY: Long time smoker, quit in the last 6 months. CARDIAC: No chest pain or palpitations. GASTROINTESTINAL: No significant changes in BMs. GENITOURINARY: No urinary frequency, urgency or dysuria. MUSCULOSKELETAL: No particular joint aches and pains. NEUROLOGIC: No headaches or seizure activity. PSYCHIATRIC: No depression or melancholia. PHYSICAL EXAMINATION: VITAL SIGNS: Today, temperature 98.1, pulse 83, respirations 16, blood pressure 162/109 in the ER. GENERAL: He is awake and alert. He does not appear to be in acute distress at this time. HISTORY AND PHYSICAL [id number] KAUSHAL ARTHUR C HEENT: Grossly within normal limits. NECK: Supple. No JVD or bruit. HEART: Regular rate and rhythm without murmur. LUNGS: Fairly clear. No wheezes. ABDOMEN: Soft, flat until we get down to the left lower quadrant where he does have a reducible inguinal hernia. There is some mild tenderness noted. EXTREMITIES: No edema. LABORATORY DATA: CBC normal. Basic metabolic panel all normal. AST is little elevated at 61, ALT is little elevated at 80. Urinalysis is unremarkable. IMAGING: CT of the abdomen and pelvis showing left inguinal hernia containing portions of sigmoid colon and inflammation adjacent to the bowel, which could indicate entrapment of bowel, possibly early changes of ischemia. ASSESSMENT: 1. Left inguinal hernia. 2. Hypertension. PLAN: Dr. Khan has seen the patient and has discussed with him the risks and benefits for surgery and he will go to the operating room tomorrow for an open left inguinal hernia repair with mesh. Other tests and procedures as warranted. TRANSINT:[id number] Voice Confirmation ID: [id number] DOCUMENT ID: [id number] MEENU LAFLEUR MD at 0851 CC: [id number] DICTATION DATE: 05/19/172201 REGISTERED VASCULAR TECHNOLOGIST (RVT): 05/19/17 2341 ADM IN [facility] [address] [place] [address]
--- NOTE | 2017-05-20 10:50 | NUR ---
CONSENTS SIGNED AND WITNESSED AT THIS TIME. PT AWAITING SURGERY.
--- NOTE | 2017-05-20 11:17 | NUR ---
PT BP CHECKED AT THIS TIME, 210/106. CHECKED MAUALLY AND GOT 192/98. CALL PLACED TO DR. BAUTISTA AND DR. RICKS RECIEVED ORDERS TO GIVE PT HIS PO ZESTRIL WITH A SMALL SIP OF WATER. WILL CONTINUE TO MONITOR.
--- NOTE | 2017-05-20 13:41 | NUR ---
UNABLE TO DISCHARGE PT AT THIS TIME DUE TO PT HAVING NO TRANSPORTATION, WORKING ON GETTING TRANSPORTATION FOR THE PT AT THIS TIME.
--- NOTE | 2017-05-20 14:23 | NUR ---
Patient Name: KAUSHAL ARTHUR Admission Status: ER Accout number: [id number] Admission Date: 05-19-2017 : 1965 Admission Diagnosis: Attending: NELLY Current LOS: 1 Anticipated DC Date: 05-24-2017 Planned Disposition: Home Primary Insurance: UNINSURED DISCOUNT PLAN Discharge Planning Comments: CM MET WITH PATIENT REGARDING D/C NEEDS AND PLANS. PATIENT STATED HE LIVES WITH HIS (EDUARDO) AND SHE WILL DRIVE HIM HOME AT DISCHARGE. PATIENT HAS 2 FLIGHTS OF STAIRS WITH RAILS TO ENTER HOME AND NO STAIRS INSIDE. PATIENT IS INDEPENDENT WITH HIS CARE AND HAS A CANE AT HOME IF NEEDED. PATIENTS PCP IS DR. LAFLEUR AND PHARMACY IS [facility] [address]. PATIENT REFUSED HOME HEALTH AT THIS TIME. CM WILL CONTINUE TO FOLLOW PATIENT WITH D/C NEEDS AND PLANS. PCP DR. MIQUEL FRAUSTO [employer] [phone] EDUARDO (SPOUSE) [phone] FLORESITA (STEP SON) [phone] Brush Fabrication Supervisor: Josie Hamilton Is the patient Alert and Oriented? Yes 0 * How many steps to enter\exit or inside your home? 2 FLIGHTS 0 * PCP DR. LAFLEUR 0 * Pharmacy [facility] [address] 0 * Preadmission Environment Home with Family 0 * ADLs Independent 0 * Equipment Cane 0 * List name and contact numbers for known caregivers / representatives who currently or will assist patient after discharge: EDUARDO () [phone] FLORESITA (STEP SON) [phone] * Community resources currently utilized None 0 * Additional services required to return to the preadmission environment? Yes 0 * Can the patient safely return to the preadmission environment? Yes 0 * Has this patient been hospitalized within the prior 30 days at any hospital? No 0 Grand Total: 0
--- NOTE | 2017-05-20 19:00 | NUR ---
REPORT RECEIVED....PT IN SURGERY AT THIS TIME
--- NOTE | 2017-05-20 21:25 | NUR ---
PT ARRIVED BACK TO ROOM ESCORTED BY X2 OR NURSES. IV IN RIGHT WRIST PATENT WITH NS INFUSING AT 100 ML / HR. DRESSING ON LEFT INGUINAL CLEAN AND DRY. WILL MONITOR CLOSLEY FOR NEEDS.
--- NOTE | 2017-05-20 21:45 | NUR ---
PAGED DR RICKS PT HAS BP OF 175/108 AFTER 20 MINS BACK IN ROOM. RECEIVED ORDER FOR CLONIDINE 0.2 MG PO Q2HR FOR ELEVATED BP.
--- NOTE | 2017-05-20 21:46 | NUR ---
UPON ARRIVAL TO PACU IVPB INFUSING WITH 0.9%NS WITH 1 GRAM OF VANCOMYCIN
--- NOTE | 2017-05-20 22:00 | NUR ---
GAVE CLONIDINE 0.2 FOR ELEVATED BP.
--- NOTE | 2017-05-20 23:00 | NUR ---
PT VOIDED 200 ML YELLOW URINE.
[2017-05-21] VITALS (10 sets, daily range): BP systolic 114–159; BP diastolic 65–103
--- NOTE | 2017-05-21 03:10 | NUR ---
GAVE MORPHINE PER PRN ORDER. PT TURNED ONTO LEFT SIDE AND PROPPED WITH 2 PILLOWS. WILL CONTINUE TO MONITOR CLOSLEY.
--- NOTE | 2017-05-21 08:00 | NUR ---
PT AOX4 RESP EVEN AND NONLABORED PT DENIES NEEDS AT THIS TIME PT C/O GAS PAIN PT INSTRUCTED TO WALK TO HELP RESOLVE THIS PAIN. IV TO RIGHT WRIST PATENT AND INTACT AT THIS TIME SRX2 BED AT LOWEST SETTING CALL LIGHT WITHIN REACH WILL CONTINUE TO MONITOR
--- NOTE | 2017-05-21 19:07 | NUR ---
LYING IN BED WITH EYES OPEN AND TV ON. PLEASANT AND TALKATIVE. CONSERNED ABOUT ABD. SWOLLEN. EXPLAINED IT WOULD TAKE TIME FOR HIS ABD. TO GO DOWN. IV TO RIGHT WRIST SL. DENIES ANY PAIN AT THIS TIME.
[2017-05-22] VITALS (7 sets, daily range): BP systolic 128–181; BP diastolic 68–91
--- NOTE | 2017-05-22 07:10 | NUR ---
REPORT RECEIVED FROM QUANTITATIVE CONSULTANT NURSE. CALL LIGHT IN REACH.
--- NOTE | 2017-05-22 07:20 | NUR ---
REQUESTING PAIN MEDS SO MORPHINE 2 GM SIVP. CALL LIGHT IN REACH.
--- NOTE | 2017-05-22 08:20 | NUR ---
ASSESSMENT COMPLETED. SCDs TO BLE. CALL LIGHT IN REACH. WILL CONTINUE WITH PLAN OF CARE.
--- NOTE | 2017-05-22 10:39 | NUR ---
AM MEDS ADMINISTERED PER ORDER. DRSG CHANGED TO LOWER ABDOMEN.
--- NOTE | 2017-05-22 10:53 | NUR ---
AWAKE AND ALERT. ORIENTED X3. NO C/O AT THIS TIME. REQUESTED IV BE D/C AT THIS TIME. D/C WITH CATHETER INTACT. REPORTS PAIN MANAGEABLE. HAS SOME GASEOUS DISTENSION OF ABDOMEN. WILL MONITOR. ENCOURAGED TO WALK IN HALLS. DENIES NEEDS.
--- NOTE | 2017-05-22 11:44 | NUR ---
IV RESITED TO LEFT AC WITH 22 GA X1 STICK. MORPHINE IVP PER PATIENT REQUEST. CALL LIGHT IN REACH.
--- NOTE | 2017-05-22 13:20 | NUR ---
NO NEEDS VOICED AT THIS TIME. CALL LIGHT IN REACH.
--- NOTE | 2017-05-22 15:26 | NUR ---
MORPHINE 2 MG SIVP PER PATIENT REQUEST D/T PAIN OF 10. OFFERED TO GIVE SUPPOSITORY BUT PATIENT WANTS TO DO IT HIMSELF.
--- NOTE | 2017-05-22 17:46 | NUR ---
NORCO PO PER C/O PAIN OF 9. BRUISING NOTED TO LEFT LOWER ABDOMEN.
--- NOTE | 2017-05-22 18:15 | NUR ---
BENADRYL PO. HAD SMALL LIQUID BM. NO OTHER CHANGES IN INITIAL ASSESSMENT. CALL LIGHT IN REACH. WILL CONTINUE WITH PLAN OF CARE
--- NOTE | 2017-05-22 18:27 | NUR ---
STATED HE WAS ALLERGIC TO HYDROCODONE AFTER TAKING PILL. SPOKE WITH DR. SIDHU. NEW ORDERS RECEIVED.
--- NOTE | 2017-05-22 19:00 | NUR ---
BEDSIDE REPORT RECEIVED AND CARE OF PT ASSUMED. PT UP AMBULATING IN ROOM...C/O ABDOMEN REMAINS DISTENDED BUT REPORTS HAVING A SMALL BM A FEW MINUTES PRIOR. WILL MONITOR CLOSELY FOR NEEDS.
--- NOTE | 2017-05-22 19:38 | NUR ---
GAVE PERCOCET 5 PER PT REQUEST FOR PAIN, PER PRN ORDER.
--- NOTE | 2017-05-22 20:50 | NUR ---
PT AMBULATING IN ROOM.
--- NOTE | 2017-05-22 21:22 | NUR ---
GAVE RESTORIL PO PER PRN ORDER PER PT REQUEST FOR SLEEP. WILL CONTINUE TO MONITOR FOR NEEDS.
--- NOTE | 2017-05-22 23:03 | NUR ---
GAVE PERCOCET 5 PER PT REQUEST FOR PAIN AT LEVEL 8/10, PER PRN ORDER. WILL CONTINUE TO MONITOR FOR NEEDS.
--- NOTE | 2017-05-23 03:00 | NUR ---
PT C/O CONSTIPATION AND WANTS A LAXATIVE. GAVE 4 OZ PRUNE JUICE AND WITHIN A FEW MINUTES PT HAD LARGE SOFT BROWN BM. WILL CONTINUE TO MONITOR FOR NEEDS.
[2017-05-23 04:00] VITALS: BP 135/80
--- NOTE | 2017-05-23 07:10 | NUR ---
RECEIVED REPORT. ASSUMED CARE OF PATIENT. CALL LIGHT WITHIN REACH. RESTING IN BED WITH EYES CLOSED, EASILY AROUSED. REQUESTS TOOTHBRUSH FOR ORAL CARE AT THIS TIME. COMPLAINS OF ABD PAIN, BLOATING. NO DISTRESS.
--- NOTE | 2017-05-23 09:05 | NUR ---
MEDICATED FOR ABD PAIN AT THIS TIME. NO DISTRESS.
[2017-05-23 10:07] VITALS: BP 139/83
[2017-05-23 10:28] LABS: BASOPHILS 0.1 % (0-2); EOSINOPHILS 2.6 % (0-7); HEMATOCRIT 40.1 % (42.0-54.0); HEMOGLOBIN 13.3 g/dL (13.5-17.5); IMMATURE GRANULOCYTES 0.5 % (0-5); LYMPHOCYTES 9.1 % (15-50); MCH 32.1 pg (26.0-34.0); MCHC 33.2 g/dL (31.0-37.0); MCV 96.9 fL (80.0-100.0); MEAN PLATELET VOLUME 9.9 fL (7.4-10.4); MONOCYTES 9.7 % (2-11); PLATELET COUNT 184 10x3/uL (130-400); RBC 4.14 10x6/uL (4.20-6.10); RDW 12.6 % (11.5-14.5); WBC 10.8 10x3/uL (4.8-10.8)
[2017-05-23 10:36] LABS: ALBUMIN 2.8 g/dL (3.4-5.0); ALKALINE PHOSPHATASE 82 U/L (46-116); ALT (SGPT) 52 U/L (10-68); CALC OSMOLALITY 278 mosm/kg (275-300); CALCIUM 8.8 mg/dL (8.5-10.1); CARBON DIOXIDE 28.9 mmol/L (21.0-32.0); CHLORIDE - SERUM 102 mmol/L (98-107); CREATININE - SERUM 1.1 mg/dL (0.6-1.3); GLUCOSE 144 mg/dL (74-106); POTASSIUM - SERUM 3.7 mmol/L (3.5-5.1); PROTEIN - SERUM 6.9 g/dL (6.4-8.2); SODIUM 139 mmol/L (136-145); UREA NITROGEN 7 mg/dL (7-18); eGFR NON AFRICAN AMERICAN 75 mL/min (90-120)
[2017-05-23 12:27] VITALS: BP 142/79
--- NOTE | 2017-05-23 14:12 | NUR ---
DRESSING REPLACED TO LEFT LOWER ABD QUAD. INCISION APPROXIMATED/STERI STRIPS INTACT. MEDICATED FOR PAIN AT THIS TIME. NO DISTRESS.
[2017-05-23 15:23] VITALS: BP 136/68
--- NOTE | 2017-05-23 18:52 | NUR ---
RESTING WELL IN BED. CALL LIGHT WITHIN REACH. NO DISTRESS.
--- NOTE | 2017-05-23 19:00 | NUR ---
BEDSIDE REPORT RECEIVED AND CARE OF PT ASSUMED. PT AMBULATING IN THE HALLWAY AT THIS TIME. IV IN LEFT FA SALINE LOCKED. WILL MONITOR FOR NEEDS.
--- NOTE | 2017-05-23 19:43 | NUR ---
PERCOCET PO GIVEN PER REQUEST FOR PAIN. WILL CONTINUE TO MONITOR FOR NEEDS.
[2017-05-23 20:00] VITALS: BP 169/82
--- NOTE | 2017-05-23 21:18 | NUR ---
GAVE RESTORIL PO FOR SLEEP.
--- NOTE | 2017-05-23 23:51 | NUR ---
GAVE PERCOCET AND BENADRYL PO PER PT REQUEST FOR PAIN AT LEVEL 8/10 AND ITCHING. WILL CONTINUE TO MONITOR FOR NEEDS.
[2017-05-24] VITALS: BP 174/71
[2017-05-24 04:00] VITALS: BP 143/81
--- NOTE | 2017-05-24 04:43 | NUR ---
GAVE PERCOCET PO PER REQUEST FOR PAIN. DRESSING ON LEFT INGUINAL AREA CLEAN AND DRY, WITH SOME BRUISING / REDNESS OF SKIN SURROUNDING DRESSING.
[2017-05-24 05:41] LABS: BASOPHILS 0.2 % (0-2); HEMATOCRIT 39.7 % (42.0-54.0); HEMOGLOBIN 13.2 g/dL (13.5-17.5); IMMATURE GRANULOCYTES 0.7 % (0-5); LYMPHOCYTES 18.1 % (15-50); MCHC 33.2 g/dL (31.0-37.0); MCV 96.4 fL (80.0-100.0); MONOCYTES 11.2 % (2-11); NEUTROPHILS 65.8 % (40-80); PLATELET COUNT 203 10x3/uL (130-400); RBC 4.12 10x6/uL (4.20-6.10); RDW 12.5 % (11.5-14.5); WBC 9.1 10x3/uL (4.8-10.8)
[2017-05-24 06:09] LABS: CALC OSMOLALITY 274 mosm/kg (275-300); CALCIUM 8.7 mg/dL (8.5-10.1); CHLORIDE - SERUM 101 mmol/L (98-107); CREATININE - SERUM 1.1 mg/dL (0.6-1.3); GLUCOSE 103 mg/dL (74-106); POTASSIUM - SERUM 3.7 mmol/L (3.5-5.1); SODIUM 138 mmol/L (136-145); eGFR NON AFRICAN AMERICAN 75 mL/min (90-120)
[2017-05-24 06:10] LABS: UREA NITROGEN 10 mg/dL (7-18)
--- NOTE | 2017-05-24 07:42 | NUR ---
IN BED AT THIS TIME WITH RESPIRATIONS EVEN AND NON LABORED. PT DENIES NEEDS AT THIS TIME. CALL LIGHT IN REACH. SRX2 WITH BED IN LOWEST POSITION AND WHEELS LOCKED. WILL CONTINUE WITH PLAN OF CARE.
[2017-05-24 08:33] VITALS: BP 159/83
--- NOTE | 2017-05-24 08:40 | NUR ---
SCHEDULED MEDICATIONS ADMINISTERED AT THIS TIME WELL PRN PERCOCET FOR PAIN AT THIS TIME. IV TO LEFT AC RE-DRESSED AT THIS TIME. DENIES FURTHER NEEDS. CALL LIGHT IN REACH, WILL CONTINUE WITH PLAN OF CARE.
[2017-05-24 12:17] VITALS: BP 142/86
--- NOTE | 2017-05-24 12:56 | NUR ---
PRN PERCOCET ADMINISTERED PER ORDER FOR PAIN.
[2017-05-24 20:00] VITALS: BP 160/89
[2017-05-25] VITALS: BP 166/79
--- NOTE | 2017-05-25 00:27 | NUR ---
PATIENT IS AWAKE, ALERT AND ORIENTED X'S 4. RESPIRATIONS ARE EVEN AND UNLABORED ON ROOM AIR. NO SIGNS OF DISTRESS NOTED. BED IN LOWEST POSITION, CALL LIGHT IN REACH. BED RAILS UP X'S 2.
[2017-05-25 04:00] VITALS: BP 162/87
--- NOTE | 2017-05-25 08:00 | NUR ---
ASSESSMENT PER FLOW SHEET.PT WITHOUT DISTRESS. STATES PAIN 8/10 SCALE.MEDS ORDERED.ABDOMEN DISTEDED,BUT ONLY SLIGHTLY FIRM. DRESSING TO LEFT LOWER ABDOMEN/ GROIN CLEAN AND DRY.MONITOR FOR NEEDS.CALL LIGHT IN REACH
[2017-05-25 08:54] VITALS: BP 152/91
[2017-05-25 11:55] VITALS: BP 138/89
[2017-05-25 15:48] VITALS: BP 118/72
--- NOTE | 2017-05-25 16:55 | OP ---
PATIENT NAME: KAUSHAL ARTHUR MEDICAL RECORD: [id number] :69 LOCATION:D.MS Gutierrez2225 ADMISSION DATE:05/20/17 SURGEON: DALIA HULL DO DATE OF OPERATION: 05/25/2017 PROCEDURE: EGD with biopsies. INDICATIONS FOR PROCEDURE: Abdominal pain and bloating. SCOPE: Olympus video gastroscope. MEDICATIONS: Propofol 300 mg IV per anesthesia. ESTIMATED BLOOD LOSS: Minimal. COMPLICATIONS: None. FINDINGS: Informed consent was given. The patient was made comfortable with the above medication. After reaching an adequate level of sedation by slow IV push, the patient was placed on his left side. The endoscope was then advanced under direct visualization through the mouth to the second portion of the duodenum. The upper, middle, and lower thirds of the esophagus appeared normal. At the GE junction, there was mild evidence of LA class A reflux-induced esophagitis. The endoscope was advanced beyond the GE junction into the stomach and retroflexed to view the cardia, where a diminutive sliding hiatal hernia was present. In the fundus and body of the stomach, there were a very few benign appearing fundic gland polyps. A single polyp was removed with cold forceps to submit for histology to confirm this diagnosis. In the antrum and prepyloric region, there was some granularity and erythema of the stomach consistent with possible gastritis. Random biopsies were taken to submit for histology and to rule out H. pylori. The endoscope was advanced beyond the pylorus into the duodenum where the bulb and second portion of the duodenum appeared normal. The scope was then removed from the patient. The patient tolerated the procedure well and there were no complications. IMPRESSION: 1. LA class A reflux-induced esophagitis. 2. Diminutive sliding hiatal hernia. 3. Benign fundic gland gastric polyps, biopsied. 4. Jjfhsxd2s and granularity of the stomach consistent with possible gastritis, biopsies taken. Biopsies were taken from the GE junction to rule out Dan esophagus. PLAN AND RECOMMENDATIONS: 1. Return to floor and possibly discharge to home this evening. 2. Continue current diet. 3. Continue current medications. 4. Add a proton pump inhibitor at 40 mEq daily for 30-60 days to see if these help symptoms. 5. Gastric emptying study as an outpatient to rule out gastroparesis. 6. Colonoscopy as an outpatient to evaluate symptoms. 7. Follow up biopsy specimen results and treat if indicated for H. pylori. TRANSINT:[id number] Voice Confirmation ID: [id number] DOCUMENT ID: [id number] OPERATIVE REPORT [id number] KAUSHAL ARTHUR NATHAN A DO at 1655 CC: [id number] DICTATION DATE: 05/25/17 1554 CELL ASSEMBLY PINNER: 05/25/17 1623 ADM IN [place] [facility] [id number] [place] [address]
--- NOTE | 2017-05-25 18:02 | NUR ---
TOLERATING REG DIET.PT WITHOUT DISTRESS.FAMILY AT BEDSIDE.CONT PLAN OF CARE
[2017-05-25] MEDS ORDERED: ZESTRIL40 MG PO (18:45)
[2017-05-25] MEDS ORDERED: PROTONIX40 MG PO (18:46)
[2017-05-25 20:00] VITALS: BP 143/70
--- NOTE | 2017-05-25 21:00 | NUR ---
PATIENT RESTING IN BED AND STATED THAT HIS RIDE HAD ALREADY LEFT FOR THE DAY AND HE WOULD LIKE TO LEAVE IN THE MORNING.
[2017-05-26 04:00] VITALS: BP 118/73
--- NOTE | 2017-05-26 08:00 | NUR ---
ASSESSMENT PER FLOW SHEET.PT WITHOUT DISTRESS.FEELING BETTER TODAY.STATES HAD BM THIS AM.DENIES FURTHER NEEDS.CALL LIGHT IN REACH
[2017-05-26 08:53] VITALS: BP 150/73
--- NOTE | 2017-05-26 09:30 | NUR ---
DISCHARGE INSTRUCTTIONS,STATES UNDERSTANDING.IV DCD WITH CATH INTACT.
--- NOTE | 2017-05-26 09:55 | NUR ---
CM REASSESSMENT NOTE: PATIENT IS DISCHARGING HOME TODAY WITH NO NEEDS/DENIED NEEDS FOR HOME HEALTH. WILL BE DRIVING HIM HOME.
--- NOTE | 2017-05-26 10:29 | NUR ---
RIDE HERE,LEFT FLOOR VIA WHEELCHAIR FOR TRANSPORT HOME.
== END 2017-05-26 10:31 | disposition home or self-care (01) | DRG 352 ==
LOC: D.ER 13:19 → OBSVTIME 16:36 → D.MS 16:36 → D.SDCHOLD 05-21 22:18 → D.MS 05-21 22:22
PROVIDERS: Emergency Medicine; Family Medicine; Surgery; ADMIT Family Medicine
PROC: 0YU60JZ Supplement Left Inguinal Region with Synthetic Substitute, Open Approach (ICD-10-PCS; principal; 2017-05-20 14:05)
PROC: 0DB48ZX Excision of Esophagogastric Junction, Via Natural or Artificial Opening Endoscopic, Diagnostic (ICD-10-PCS; 2017-05-25)
PROC: 0DB68ZX Excision of Stomach, Via Natural or Artificial Opening Endoscopic, Diagnostic (ICD-10-PCS; 2017-05-25)
PROC: 0DB68ZZ Excision of Stomach, Via Natural or Artificial Opening Endoscopic (ICD-10-PCS; 2017-05-25)
DX: K40.90 Unilateral inguinal hernia, without obstruction or gangrene, not specified as recurrent (principal); J45.909 Unspecified asthma, uncomplicated; I10 Essential (primary) hypertension; Z87.891 Personal history of nicotine dependence; K21.0 Gastro-esophageal reflux disease with esophagitis; K76.0 Fatty (change of) liver, not elsewhere classified; K31.7 Polyp of stomach and duodenum; R14.0 Abdominal distension (gaseous)

== ENCOUNTER 2019-07-15 15:43 | Inpatient (IN) | payer MEDICAID ==
[~2019-07-15] VITALS: Ht 167.6 cm; Wt 72.6 kg
[2019-07-15] VITALS (11 sets, daily range): BP systolic 122–201; BP diastolic 80–121; BMI 25.8
[~2019-07-15 15:43] MED LIST changes: +PROTONIX40 MG PO; +ZESTRIL40 MG PO
[2019-07-15 16:29] LABS: BASOPHILS 0.2 % (0-2); EOSINOPHILS 0.1 % (0-7); HEMATOCRIT 56.3 % (42.0-54.0); IMMATURE GRANULOCYTES 0.3 % (0-5); LYMPHOCYTES 12.4 % (15-50); MCH 33.9 pg (26.0-34.0); MCHC 35.5 g/dL (31.0-37.0); MCV 95.4 fL (80.0-100.0); MEAN PLATELET VOLUME 9.8 fL (7.4-10.4); MONOCYTES 8.4 % (2-11); NEUTROPHILS 78.6 % (40-80); PLATELET COUNT 233 10x3/uL (130-400); RDW 12.4 % (11.5-14.5)
[2019-07-15 16:39] LABS: APTT 26.4 SECONDS (22.8-39.4); INR 0.89 (0.85-1.17); PROTIME 11.6 SECONDS (11.6-15.0)
[2019-07-15 16:46] LABS: ALBUMIN 4.1 g/dL (3.4-5.0); ALKALINE PHOSPHATASE 105 U/L (46-116); ALT (SGPT) 57 U/L (10-68); BILIRUBIN - TOTAL 1.74 mg/dL (0.2-1.3); CALC OSMOLALITY 277 mosm/kg (275-300); CALCIUM 9.3 mg/dL (8.5-10.1); CARBON DIOXIDE 29.5 mmol/L (21.0-32.0); CHLORIDE - SERUM 98 mmol/L (98-107); CREATININE - SERUM 1.1 mg/dL (0.6-1.3); GLUCOSE 119 mg/dL (74-106); POTASSIUM - SERUM 4.1 mmol/L (3.5-5.1); PROTEIN - SERUM 8.1 g/dL (6.4-8.2); SODIUM 138 mmol/L (136-145); UREA NITROGEN 16 mg/dL (7-18); eGFR NON AFRICAN AMERICAN 75 mL/min (90-120)
[2019-07-15 16:49] LABS: D-DIMER-QUANTITATIVE 0.41 ug/mLFEU (0.20-0.54)
[2019-07-15 16:57] LABS: CREATINE KINASE 138 UL (21-232); MAGNESIUM - SERUM 1.5 mg/dL (1.8-2.4); PRO BNP 4405 pg/mL (0-125); TROPONIN-I < 0.017 ng/mL (0.000-0.060)
--- NOTE | 2019-07-15 17:00 | NUR ---
B/P 201/121 PROVIDER NOTIFIED AND WITH PT, NEW ORDERS RECEIVED AND NOTED.
[2019-07-15 17:36] LABS: AMYLASE - SERUM 16 U/L (25-115); LIPASE 128 U/L (73-393)
--- NOTE | 2019-07-15 19:19 | NUR ---
REPORT GIVEN TO RAFY SALINAS
[2019-07-15 20:39] LABS: APPEARANCE CLEAR (CLEAR); BILIRUBIN NEGATIVE (NEGATIVE); COLOR YELLOW (YELLOW); GLUCOSE NEGATIVE (NEGATIVE); KETONE SMALL mg/dL (NEGATIVE); NITRITE NEGATIVE (NEGATIVE); PROTEIN 1+ mg/dL (NEGATIVE); SPECIFIC GRAVITY 1.005 (1.005-1.020); UROBILINOGEN NORMAL (NORMAL)
[2019-07-15 20:41] LABS: AMORPHOUS SEDIMENT <1+ /lpf (NONE SEEN); BACTERIA FEW /hpf (NEGATIVE); RED CELLS - URINE 0-5 /hpf (0-5); WHITE CELLS - URINE RARE /hpf (NEGATIVE)
[2019-07-15 20:50] LABS: UDS - AMPHET NEGATIVE QUAL (NEGATIVE); UDS - BARB NEGATIVE QUAL (NEGATIVE); UDS - BENZO NEGATIVE QUAL (NEGATIVE); UDS - COCAINE NEGATIVE QUAL (NEGATIVE); UDS - OPIATE POSITIVE QUAL (NEGATIVE); UDS - PCP NEGATIVE QUAL (NEGATIVE); UDS - THC POSITIVE QUAL (NEGATIVE)
--- NOTE | 2019-07-15 21:30 | NUR ---
PT GIVEN SANDWICH AND WATER AT THIS TIME. PT STATES THAT HE IS FEELING BETTER AT THIS TIME.
[2019-07-16 03:50] VITALS: BP 144/85
--- NOTE | 2019-07-16 07:37 | NUR ---
RECIEVE REPORT. ENTER ROOM. PATIENT NOT THERE. HOUSE KEEPING JAMARI STATES, "HE JUST GOT ON THE ELEVATOR."
[2019-07-16 08:00] VITALS: BP 139/94
[2019-07-16 16:00] VITALS: BP 108/87
--- NOTE | 2019-07-16 16:38 | NUR ---
ALERT AND ORIENTED X4. SITTING UP IN BED. NONSKID SOCKS GIVEN FOR AMBULATION. GAIT STEADY. DECREASE NS TO 30ml/HR ORDERED. REQUEST TO AMBULATE IN [place]. INFORM TO AMBULATE ONLY ON UNIT. SINUS RYTHM ON TELEMETRY. CONTINUE PLAN OF CARE CARE AND SAFETY PRECAUTIONS.
--- NOTE | 2019-07-16 19:10 | NUR ---
PT UP AND AMBLITORY IV IS INFILTRATED I REMOVED CATH INTACT WHZ BILAT SKIN WARM AND DRY PT REQUESTED SHOWER BEFORE I START NEW IV ,,,BED LOW AND LOCKED CALL LIGHT IN REACH
[2019-07-16 20:00] VITALS: BP 125/71
--- NOTE | 2019-07-16 20:17 | NUR ---
RESTARTED IV WITH 22 TO RT FOREARM
[2019-07-17 00:30] VITALS: BP 146/76
[2019-07-17 00:35] VITALS: BP 150/88
--- NOTE | 2019-07-17 03:55 | NUR ---
I have reviewed this patient and I concur with the Shift Assessment completed by the Licensed Practical Nurse today this shift.
[2019-07-17 04:24] VITALS: BP 161/86
[2019-07-17 06:32] LABS: BASOPHILS 0.2 % (0-2); EOSINOPHILS 0.7 % (0-7); HEMATOCRIT 48.8 % (42.0-54.0); HEMOGLOBIN 16.7 g/dL (13.5-17.5); IMMATURE GRANULOCYTES 0.3 % (0-5); LYMPHOCYTES 20.6 % (15-50); MCH 33.9 pg (26.0-34.0); MCHC 34.2 g/dL (31.0-37.0); MEAN PLATELET VOLUME 10.2 fL (7.4-10.4); MONOCYTES 10.5 % (2-11); NEUTROPHILS 67.7 % (40-80); PLATELET COUNT 213 10x3/uL (130-400); RBC 4.92 10x6/uL (4.20-6.10); RDW 12.8 % (11.5-14.5)
[2019-07-17 06:48] LABS: CALC OSMOLALITY 281 mosm/kg (275-300); CALCIUM 8.6 mg/dL (8.5-10.1); CARBON DIOXIDE 32.7 mmol/L (21.0-32.0); CHLORIDE - SERUM 101 mmol/L (98-107); CREATININE - SERUM 1.1 mg/dL (0.6-1.3); GLUCOSE 101 mg/dL (74-106); SODIUM 141 mmol/L (136-145); UREA NITROGEN 16 mg/dL (7-18); eGFR NON AFRICAN AMERICAN 75 mL/min (90-120)
[2019-07-17 06:49] LABS: POTASSIUM - SERUM 3.4 mmol/L (3.5-5.1)
[2019-07-17 06:51] LABS: MCV 99.2 fL (80.0-100.0); WBC 11.9 10x3/uL (4.8-10.8)
--- NOTE | 2019-07-17 07:17 | NUR ---
RECIEVE REPORT. RESTING IN BED WITH EYES CLOSED. RESPIRATIONS EVEN AND REGULAR. SINUS RYTHM ON TELEMETRY. CONTINUE PLAN OF CARE AND SAFETY PRECAUTIONS.
[2019-07-17 08:30] VITALS: BP 151/74
[2019-07-17 16:52] VITALS: BP 133/67
--- NOTE | 2019-07-17 17:49 | NUR ---
ALERT AND ORIENTED X4. UP AMBULATING IN [place]. SINUS RYTHM ON TELEMETRY. DENIES ANY NEEDS AT THIS TIME. CONTINUE PLAN OF CARE AND SAFETY PRECAUTIONS.
--- NOTE | 2019-07-17 19:33 | NUR ---
RECIEVED BEDSIDE SHIFT REPORT. ALERT AND ORIENTED X4. UP AD AJAY. IV TO RIGHT FA SL. C/O CONSTIPATION AND STATED HE ONLY HAD 2 VERY SMALL BM TODAY. REMAINS ON EP. DENIES ANY NEEDS AT THIS TIME.
[2019-07-17 20:00] VITALS: BP 115/71
--- NOTE | 2019-07-17 20:43 | NUR ---
AGREED TO ALLOW LAB TO DRAW.
--- NOTE | 2019-07-17 23:51 | NUR ---
IV INFILTRATED IN RIGHT FA. RESTARTED WITH 22GA TO LEFT FA. ATTEMPTS X1.
[2019-07-18] VITALS: BP 128/74
[2019-07-18 04:00] VITALS: BP 148/70
[2019-07-18 05:13] LABS: BASOPHILS 0.2 % (0-2); EOSINOPHILS 0.9 % (0-7); HEMATOCRIT 42.7 % (42.0-54.0); HEMOGLOBIN 14.3 g/dL (13.5-17.5); IMMATURE GRANULOCYTES 0.3 % (0-5); LYMPHOCYTES 15.3 % (15-50); MCH 33.6 pg (26.0-34.0); MCHC 33.5 g/dL (31.0-37.0); MCV 100.2 fL (80.0-100.0); MEAN PLATELET VOLUME 10.3 fL (7.4-10.4); MONOCYTES 10.3 % (2-11); PLATELET COUNT 175 10x3/uL (130-400); RBC 4.26 10x6/uL (4.20-6.10); RDW 12.9 % (11.5-14.5); WBC 11.3 10x3/uL (4.8-10.8)
[2019-07-18 05:24] LABS: CALC OSMOLALITY 290 mosm/kg (275-300); CALCIUM 8.4 mg/dL (8.5-10.1); CARBON DIOXIDE 30.8 mmol/L (21.0-32.0); CHLORIDE - SERUM 105 mmol/L (98-107); GLUCOSE 104 mg/dL (74-106); SODIUM 145 mmol/L (136-145); UREA NITROGEN 19 mg/dL (7-18); eGFR NON AFRICAN AMERICAN 84 mL/min (90-120)
[2019-07-18 05:36] LABS: POTASSIUM - SERUM 3.5 mmol/L (3.5-5.1)
--- NOTE | 2019-07-18 07:30 | NUR ---
RECIEVE REPORT. PATIENT NOT IN ROOM.
[2019-07-18 12:45] VITALS: BP 140/76
--- NOTE | 2019-07-18 13:24 | NUR ---
NOTIFY PATIENT HAS NOT BEEN SEEN SINCE 07/16/19.
[2019-07-18 15:01] VITALS: Ht 167.6 cm; Wt 72.6 kg
[2019-07-18 16:46] VITALS: BP 130/74
--- NOTE | 2019-07-18 17:28 | NUR ---
ALERT AND ORIENTED X4. SITTING UP IN ROOM EATING. QUESTIONS WHEN DOCTOR WILL ARRIVE. CALL MANAGER FINANCIAL REPORTING DOCTOR.
--- NOTE | 2019-07-18 19:18 | NUR ---
PATIENT IS AAO AND IS WATCHING TV. NO VISIBLE SIGNS OF DISTRESS. PATIENT DENIES ANY PAIN OR CONCERNS AT THIS TIME. BED IS IN THE LOWEST POSITION AND CALL LIGHT IN REACH.
[2019-07-18 20:00] VITALS: BP 153/78
[2019-07-19] VITALS: BP 122/76
--- NOTE | 2019-07-19 00:36 | NUR ---
Dr. Dial continued order for Morphine Sulfate IV 4mg/ml Q4H PRN.
[2019-07-19 04:00] VITALS: BP 152/79
[2019-07-19 05:44] LABS: BASOPHILS 0.2 % (0-2); CALC OSMOLALITY 274 mosm/kg (275-300); CALCIUM 8.5 mg/dL (8.5-10.1); CARBON DIOXIDE 30.8 mmol/L (21.0-32.0); CHLORIDE - SERUM 104 mmol/L (98-107); CREATININE - SERUM 0.9 mg/dL (0.6-1.3); EOSINOPHILS 1.8 % (0-7); GLUCOSE 108 mg/dL (74-106); HEMATOCRIT 43.5 % (42.0-54.0); HEMOGLOBIN 14.5 g/dL (13.5-17.5); IMMATURE GRANULOCYTES 0.3 % (0-5); LYMPHOCYTES 19.6 % (15-50); MCH 33.6 pg (26.0-34.0); MCHC 33.3 g/dL (31.0-37.0); MCV 100.9 fL (80.0-100.0); MEAN PLATELET VOLUME 10.4 fL (7.4-10.4); MONOCYTES 9.7 % (2-11); NEUTROPHILS 68.4 % (40-80); PLATELET COUNT 205 10x3/uL (130-400); POTASSIUM - SERUM 3.3 mmol/L (3.5-5.1); RBC 4.31 10x6/uL (4.20-6.10); RDW 12.9 % (11.5-14.5); SODIUM 136 mmol/L (136-145); UREA NITROGEN 19 mg/dL (7-18); eGFR NON AFRICAN AMERICAN > 90 mL/min (90-120)
--- NOTE | 2019-07-19 07:52 | NUR ---
ASSESSMENT DONE. DENIES NEEDS
[2019-07-19 08:00] VITALS: BP 135/81
--- NOTE | 2019-07-19 10:39 | NUR ---
I have reviewed this patient and I concur with the Shift Assessment completed by the Licensed Practical Nurse today this shift.
[2019-07-19 12:00] VITALS: BP 160/85
--- NOTE | 2019-07-19 15:04 | MORECARE ---
CASE MANAGEMENT DISCHARGE SUMMARY PATIENT: KAUSHAL ARTHUR UNIT: [id number] ADM DATE: 07/15/19 AGE: 53 : 69 SEX: M ROOM/BED: D.2131 AUTHOR: SOPHY CHURCH PHYSICIAN: REFERRING PHYSICIAN: MEENU LAFLEUR MD DATE OF SERVICE: 07/19/19 Discharge Plan Patient Name: KAUSHAL ARTHUR [facility] [facility] 1965 Planned Disposition: Home Anticipated Discharge Date: 07/19/19 Discharge Date: Expected LOS: 4 Initial Reviewer: [email or web address] Initial Review Date: 07/15/2019 Generated: 07/19/19 4:03 pm DCPIA - Discharge Planning Initial Assessment Updated by [email or web address]: Stefan Lala on 07/19/19 2:59 pm * Is the patient Alert and Oriented? Yes * How many steps to enter\exit or inside your home? 2 FLIGHTS * PCP NONE * Pharmacy [facility] * Preadmission Environment Home with Family * ADLs Independent * Equipment Nebulizer * Other Equipment BLOOD PRESSURE CUFF NO MEDICAL EQUIPMENT PROVIDER PREFERENCE * List name and contact numbers for known caregivers / representatives who currently or will assist patient after discharge: EDUARDO ARTHUR, SEPERATED SPOUSE, * Verbal permission to speak to the caregivers and representatives has been obtained from the patient. N/A * Community resources currently utilized None * Please name any agencies selected above. NONE * Additional services required to return to the preadmission environment? No * Can the patient safely return to the preadmission environment? Yes * Has this patient been hospitalized within the prior 30 days at any hospital? No Patient Name: KAUSHAL ARTHUR Page 93127 at 1504 All edits/amendments must be made on the electronic document DICTATION DATE: 07/19/191502 ASSEMBLER CATERPILLAR SPIDER: MARY 07/19/191502 RPT#: [id number] DC DATE: STATUS: ADM IN [facility] [address] [place] [address] END OF REPORT
--- NOTE | 2019-07-19 15:12 | MORECARE ---
CASE MANAGEMENT DISCHARGE SUMMARY PATIENT: KAUSHAL ARTHUR UNIT: [id number] ADM DATE: 07/15/19 AGE: 53 : 69 SEX: M ROOM/BED: D.0887 AUTHOR: SOPHY CHURCH PHYSICIAN: REFERRING PHYSICIAN: MEENU LAFLEUR MD DATE OF SERVICE: 07/19/19 Discharge Plan Patient Name: KAUSHAL ARTHUR Facility: [facility]:[place] : 1965 Planned Disposition: Home Anticipated Discharge Date: 07/19/19 Discharge Date: Expected LOS: 4 Initial Reviewer: [email or web address] Initial Review Date: 07/15/2019 Generated: 07/19/19 4:12 pm Comments DCP- Discharge Planning Updated by [email or web address]: Stefan Lala on 07/19/19 2:[address] Patient Name: KAUSHAL ARTHUR Admission Status: ER Accout number: [id number] Admission Date: 07-15-2019 : 1965 Admission Diagnosis: Attending: MEENU LAFLEUR Current LOS: 4 Anticipated DC Date: 07-19-2019 Planned Disposition: Home Primary Insurance: [place] Discharge Planning Comments: CM MET WITH PT IN ROOM TO DISCUSS DISCHARGE PLANNING AND NEEDS. PT REPORTS LIVING AT HOME INDEPENDENTLY WITH TWO FRIENDS. PT HAS NEBULIZER AND BLOOD PRESSURE CUFF WITH NO MEDICAL EQUIPMENT PROVIDER PREFERENCE. PT HAS NO OUTSIDE SERVICES ASSISTING IN THE HOME. CM DISCUSSED AVAILABILITY OF HOME HEALTH, REHAB SERVICES AND MEDICAL EQUIPMENT. PT DENIES DISCHARGE NEEDS, REPORTS HIS FRIEND WILL PICK HIM UP FOR DISCHARGE HOME. CM LATER SPOKE TO DR PATIÑO WHO INFORMED CM THAT DR. LAFLEUR IS NOT PT'S PRIMARY CARE DOCTOR AND THAT PT NEEDS ASSISTANCE IN FINDING A DOCTOR. CM REVIEWED CHART, PT IS MEDICAID PENDING. CM MET AGAIN WITH PT IN ROOM. PT KNOWS NOW HE DOES NOT HAVE A PRIMARY CARE DOCTOR. PT REPORTS THE HOSPITAL GAVE HIM AN APPLICATION FOR MEDICAID AND THAT HE HAS TO TURN IN THE FORMS FOR THE APPLICATION TO BE PROCESSED; PT REPORTS NEEDING AND INCOME AND ASSETS FORM FOR THE APPLICATION. CM CALLED [facility] [employer], [facility] WILL PROVIDE PT WITH REPLACEMENT FORM FOR MEDICAID APPLICATION. CM PROVIDED PT WITH [facility] INFORMATION, DEPARTMENT OF HUMAN SERVICES IN [facility] CONTACT INFORMATION [facility] INFORMATION. CM EDUCATED PT ON HOW TO FOLLOW UP WITH DEPARTMENT OF HUMAN SERVICES FOR MEDICAID APPLICATION FOLLOW UP WELL GETTING PRIMARY CARE DOCTOR ASSIGNMENT ASSISTANCE. PT REPORTS UNDERSTANDING AND DENIES FURTHER NEEDS FOR DISCHARGE. PT PLANS TO DISCHARGE HOME WITH ROOMMATES, FRIEND TO TRANSPORT HOME AT DISCHARGE. PT HAS NO ANTICIPATED DISCHARGE NEEDS. CM TO FOLLOW AND ASSIST IF NEEDED. Coil Repair Technician: Stefan Lala DCPIA - Discharge Planning Initial Assessment Updated by [email or web address]: Stefan Lala on 07/19/19 2:59 pm * Is the patient Alert and Oriented? Yes * How many steps to enter\exit or inside your home? 2 FLIGHTS * PCP NONE * Pharmacy [facility] ON [address] * Preadmission Environment Home with Family * ADLs Independent * Equipment Nebulizer * Other Equipment BLOOD PRESSURE CUFF NO MEDICAL EQUIPMENT PROVIDER PREFERENCE * List name and contact numbers for known caregivers / representatives who currently or will assist patient after discharge: EDUARDO ARTHUR, SEPERATED SPOUSE, * Verbal permission to speak to the caregivers and representatives has been obtained from the patient. N/A * Community resources currently utilized None * Please name any agencies selected above. NONE * Additional services required to return to the preadmission environment? No * Can the patient safely return to the preadmission environment? Yes * Has this patient been hospitalized within the prior 30 days at any hospital? No Last DP export: 07/19/19 2:04 p Patient Name: KAUSHAL ARTHUR Page 43747 at 1512 All edits/amendments must be made on the electronic document DICTATION DATE: 07/19/191511 KOSHER BUTCHER: MARY 07/19/191511 RPT#: [id number] DC DATE: STATUS: ADM IN [facility] [address] [place] [address] END OF REPORT
[2019-07-19 16:00] VITALS: BP 118/70
--- NOTE | 2019-07-19 17:46 | NUR ---
WITHOUT CHANGES OR DISTRESS NOTED AT THIS TIME. FAMILY AT SIDE.
--- NOTE | 2019-07-19 19:15 | NUR ---
BEDSIDE REPORT RECEIVED FROM DAY SHIFT, PT CARE ASSUMED. INTRODUCED SELF AND WROTE NAME ON BOARD. PT SITTING ON SIDE OF BED, AAOX4. DENIES ANY NEEDS AT THIS TIME. BED IN LOWEST POSITION, SR X2, CALL LIGHT WITHIN REACH. WILL CONTINUE TO MONITOR.
[2019-07-19 20:35] VITALS: BP 112/66
--- NOTE | 2019-07-19 21:25 | NUR ---
PT WALKING AROUND ROOM, TALKING ON THE PHONE. REPORTS BACK PAIN OF 8, ON A SCALE OF 0-10. NIGHT TIME MEDS ADMINSITERED, PER ORDER. DENIES ANY OTHER NEEDS AT THIS TIME. BED IN LOWEST POSITION, SR X2, CALL LIGHT WITHIN REACH. WILL CONTINUE TO MONITOR.
[2019-07-20 00:45] VITALS: BP 104/73
[2019-07-20 04:30] VITALS: BP 144/88
[2019-07-20 04:50] LABS: BASOPHILS 0.2 % (0-2); EOSINOPHILS 1.7 % (0-7); HEMATOCRIT 47.2 % (42.0-54.0); IMMATURE GRANULOCYTES 0.4 % (0-5); LYMPHOCYTES 16.1 % (15-50); MCH 33.8 pg (26.0-34.0); MCHC 33.9 g/dL (31.0-37.0); MCV 99.6 fL (80.0-100.0); MEAN PLATELET VOLUME 10.3 fL (7.4-10.4); NEUTROPHILS 70.6 % (40-80); PLATELET COUNT 191 10x3/uL (130-400); RBC 4.74 10x6/uL (4.20-6.10); RDW 12.7 % (11.5-14.5); WBC 11.9 10x3/uL (4.8-10.8)
[2019-07-20 05:12] LABS: CALC OSMOLALITY 282 mosm/kg (275-300); CALCIUM 9.1 mg/dL (8.5-10.1); CARBON DIOXIDE 34.2 mmol/L (21.0-32.0); CHLORIDE - SERUM 103 mmol/L (98-107); GLUCOSE 107 mg/dL (74-106); POTASSIUM - SERUM 3.9 mmol/L (3.5-5.1); SODIUM 141 mmol/L (136-145); UREA NITROGEN 19 mg/dL (7-18); eGFR NON AFRICAN AMERICAN 84 mL/min (90-120)
[2019-07-20 08:55] VITALS: BP 148/87
--- NOTE | 2019-07-20 11:15 | OP ---
PATIENT NAME: KAUSHAL ARTHUR MEDICAL RECORD: [id number] :69 LOCATION:D.M2 D.2131 ADMISSION DATE:07/15/19 SURGEON: MARTHA YUN MD DATE OF OPERATION: 07/20/2019 SURGEON: Martha Yun MD FISH WORM GROWER: FRANCISCA by Shivam Pan CRNA. DIAGNOSES: Bladder mass seen on CT scan, microscopic hematuria. PROCEDURE: Cystoscopy. FINDINGS: On cystoscopy, nonobstructive prostate, single ureteral orifices bilaterally. No bladder tumors. 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 BLOOD LOSS: None. CLINICAL HISTORY: This is a 53-year-old male, who came to the hospital with vague complaints of shortness of breath as well as constipation. He had a CT scan of the abdomen and pelvis performed. The kidneys are normal. The bladder showed some "hyperdense areas" in the dependent portion of the bladder. There is some intraprostatic stones. He does have microscopic hematuria. He will be having cystoscopy to evaluate his bladder. He is given Ancef litigation attorney associate to the OR. DESCRIPTION OF PROCEDURE: The patient was given IV sedation. While we were prepping him, we noticed that he has a large genital wart in the left suprapubic region. A cystoscopy was performed. No lesions were seen in the penile urethra. He has a nonobstructive prostate. Going into the bladder, there were no bladder tumors seen. The bladder was emptied through the cystoscope sheath and then the scope was removed. The patient was awakened and brought back to the recovery room. TRANSINT:[id number] Voice Confirmation ID: [id number] DOCUMENT ID: [id number] MARTHA YUN MD at 1115 CC: [id number] DICTATION DATE: 07/20/19 1044 MANAGER AVIATION: 07/20/19 1114 ADM IN [place] [address] [place] [address]
[2019-07-20 12:10] VITALS: BP 137/78
[2019-07-20] MEDS ORDERED: SINGULAIR10 MG PO (13:45)
[2019-07-20] MEDS ORDERED: FUROSEMIDE20 MG PO (13:45)
[2019-07-20] MEDS ORDERED: IPRAT-ALBUT 0.5-3 ML UPD (15:34)
--- NOTE | 2019-07-20 17:26 | MORECARE ---
CASE MANAGEMENT DISCHARGE SUMMARY PATIENT: KAUSHAL ARTHUR UNIT: [id number] ADM DATE: 07/15/19 AGE: 53 : 69 SEX: M ROOM/BED: D.1804 AUTHOR: SOPHY CHURCH PHYSICIAN: REFERRING PHYSICIAN: MEENU LAFLEUR MD DATE OF SERVICE: 07/20/19 Discharge Plan Patient Name: KAUSHAL ARTHUR Facility: [facility]:[place] : 1965 Planned Disposition: Home Anticipated Discharge Date: 07/20/19 Discharge Date: 07/20/2019 Expected LOS: 5 Initial Reviewer: [email or web address] Initial Review Date: 07/15/2019 Generated: 07/20/19 6:26 pm Comments DCP- Discharge Planning Updated by [email or web address]: Stefan Lala on 07/19/19 2:[address] Patient Name: KAUSHAL ARTHUR Admission Status: ER Accout number: [id number] Admission Date: 07-15-2019 : 1965 Admission Diagnosis: Attending: MEENU LAFLEUR Current LOS: 4 Anticipated DC Date: 07-19-2019 Planned Disposition: Home Primary Insurance: [place] Discharge Planning Comments: CM MET WITH PT IN ROOM TO DISCUSS DISCHARGE PLANNING AND NEEDS. PT REPORTS LIVING AT HOME INDEPENDENTLY WITH TWO FRIENDS. PT HAS NEBULIZER AND BLOOD PRESSURE CUFF WITH NO MEDICAL EQUIPMENT PROVIDER PREFERENCE. PT HAS NO OUTSIDE SERVICES ASSISTING IN THE HOME. CM DISCUSSED AVAILABILITY OF HOME HEALTH, REHAB SERVICES AND MEDICAL EQUIPMENT. PT DENIES DISCHARGE NEEDS, REPORTS HIS FRIEND WILL PICK HIM UP FOR DISCHARGE HOME. CM LATER SPOKE TO DR PATIÑO WHO INFORMED CM THAT DR. LAFLEUR IS NOT PT'S PRIMARY CARE DOCTOR AND THAT PT NEEDS ASSISTANCE IN FINDING A DOCTOR. CM REVIEWED CHART, PT IS MEDICAID PENDING. CM MET AGAIN WITH PT IN ROOM. PT KNOWS NOW HE DOES NOT HAVE A PRIMARY CARE DOCTOR. PT REPORTS THE HOSPITAL GAVE HIM AN APPLICATION FOR MEDICAID AND THAT HE HAS TO TURN IN THE FORMS FOR THE APPLICATION TO BE PROCESSED; PT REPORTS NEEDING AND INCOME AND ASSETS FORM FOR THE APPLICATION. MILLI CALLED [facility] OF [facility] [employer], [facility] WILL PROVIDE PT WITH REPLACEMENT FORM FOR MEDICAID APPLICATION. CM PROVIDED PT WITH [facility] INFORMATION, DEPARTMENT OF HUMAN SERVICES IN [facility] CONTACT INFORMATION WELL [facility] INFORMATION. CM EDUCATED PT ON HOW TO FOLLOW UP WITH DEPARTMENT OF HUMAN SERVICES FOR MEDICAID APPLICATION FOLLOW UP WELL GETTING PRIMARY CARE DOCTOR ASSIGNMENT ASSISTANCE. PT REPORTS UNDERSTANDING AND DENIES FURTHER NEEDS FOR DISCHARGE. PT PLANS TO DISCHARGE HOME WITH ROOMMATES, FRIEND TO TRANSPORT HOME AT DISCHARGE. PT HAS NO ANTICIPATED DISCHARGE NEEDS. CM TO FOLLOW AND ASSIST IF NEEDED. Breaker Mechanic: Stefan Lala DCPIA - Discharge Planning Initial Assessment Updated by [email or web address]: Stefan Lala on 07/19/19 2:59 pm * Is the patient Alert and Oriented? Yes * How many steps to enter\exit or inside your home? 2 FLIGHTS * PCP NONE * Pharmacy [facility] ON [address] * Preadmission Environment Home with Family * ADLs Independent * Equipment Nebulizer * Other Equipment BLOOD PRESSURE CUFF NO MEDICAL EQUIPMENT PROVIDER PREFERENCE * List name and contact numbers for known caregivers / representatives who currently or will assist patient after discharge: EDUARDO ARTHUR, SEPERATED SPOUSE, * Verbal permission to speak to the caregivers and representatives has been obtained from the patient. N/A * Community resources currently utilized None * Please name any agencies selected above. NONE * Additional services required to return to the preadmission environment? No * Can the patient safely return to the preadmission environment? Yes * Has this patient been hospitalized within the prior 30 days at any hospital? No Last DP export: 07/19/19 2:13 p Patient Name: KAUSHAL ARTHUR Page 55139 at 1726 All edits/amendments must be made on the electronic document DICTATION DATE: 07/20/191725 SUPERVISOR WHIPPED TOPPING: MARY 07/20/191725 RPT#: [id number] DC DATE:07/20/19 STATUS: DIS IN [facility] [address] [place] [address] END OF REPORT
== END 2019-07-20 16:29 | disposition home or self-care (01) | DRG 304 ==
LOC: D.ER 15:43 → D.M2 21:55
PROVIDERS: Family Medicine; Urology; ADMIT Family Medicine; ATTEND Family Medicine
PROC: 0TJB8ZZ Inspection of Bladder, Via Natural or Artificial Opening Endoscopic (ICD-10-PCS; principal; 2019-07-20 09:00)
DX: I16.0 Hypertensive urgency (principal); I50.41 Acute combined systolic (congestive) and diastolic (congestive) heart failure; I11.0 Hypertensive heart disease with heart failure; K21.9 Gastro-esophageal reflux disease without esophagitis; K59.00 Constipation, unspecified; J43.9 Emphysema, unspecified; K64.9 Unspecified hemorrhoids; F12.90 Cannabis use, unspecified, uncomplicated; N32.9 Bladder disorder, unspecified; A63.0 Anogenital (venereal) warts; Z72.0 Tobacco use

== ENCOUNTER 2020-03-25 16:37 | Inpatient (IN) | payer OTHER ==
[2020-03-25] VITALS (7 sets, daily range): BP systolic 77–163; BP diastolic 44–87; BMI 25.8
[~2020-03-25] VITALS: Ht 167.6 cm; Wt 77.1 kg
[~2020-03-25 16:37] MED LIST changes: +FUROSEMIDE20 MG PO
[2020-03-25] MEDS ORDERED: TOPROL XL25 MG PO (16:54)
[2020-03-25 17:13] LABS: BASOPHILS 0.2 % (0-2); EOSINOPHILS 0.4 % (0-7); HEMATOCRIT 45.3 % (42.0-54.0); HEMOGLOBIN 15.1 g/dL (13.5-17.5); IMMATURE GRANULOCYTES 0.5 % (0-5); LYMPHOCYTES 16.7 % (15-50); MCH 33.5 pg (26.0-34.0); MCHC 33.3 g/dL (31.0-37.0); MCV 100.4 fL (80.0-100.0); MEAN PLATELET VOLUME 9.2 fL (7.4-10.4); MONOCYTES 8.1 % (2-11); NEUTROPHILS 74.1 % (40-80); RBC 4.51 10x6/uL (4.20-6.10)
[2020-03-25 17:16] LABS: INR 0.94 (0.85-1.17); PROTIME 12.5 SECONDS (11.6-15.0)
[2020-03-25 17:17] LABS: APTT 28.3 SECONDS (22.8-39.4)
[2020-03-25 17:18] LABS: PLATELET COUNT 230 10x3/uL (130-400)
[2020-03-25 17:23] LABS: CALC OSMOLALITY 277 mosm/kg (275-300); CALCIUM 8.4 mg/dL (8.5-10.1); CARBON DIOXIDE 29.1 mmol/L (21.0-32.0); CHLORIDE - SERUM 100 mmol/L (98-107); CREATININE - SERUM 1.3 mg/dL (0.6-1.3); GLUCOSE 103 mg/dL (74-106); POTASSIUM - SERUM 4.2 mmol/L (3.5-5.1); SODIUM 137 mmol/L (136-145); UREA NITROGEN 24 mg/dL (7-18); eGFR NON AFRICAN AMERICAN 61 mL/min (90-120)
--- NOTE | 2020-03-25 17:32 | NUR ---
PT DIAPHORETIC AND HYPOTENSIVE, JESSICA ESPINOZA NOTIFIED AND AT BS. NS BOLUS INITIATED. PT CONT TO C/O CP.
[2020-03-25 17:39] LABS: ALBUMIN 3.3 g/dL (3.4-5.0); ALKALINE PHOSPHATASE 76 U/L (30-120); ALT (SGPT) 52 U/L (10-68); BILIRUBIN - TOTAL 0.32 mg/dL (0.2-1.3); CKMB 4.4 U/L (0.0-3.6); CREATINE KINASE 210 UL (21-232); MAGNESIUM - SERUM 1.6 mg/dL (1.8-2.4)
[2020-03-25 17:45] LABS: TROPONIN-I < 0.017 ng/mL (0.000-0.060)
--- NOTE | 2020-03-25 18:50 | NUR ---
NASAL SWAB COLLECTED, LABELED AT BS AND SENT TO LAB
--- NOTE | 2020-03-25 19:35 | NUR ---
BS REPORT TO RITA VELASCO
--- NOTE | 2020-03-25 20:54 | NUR ---
PT TO FLOOR AT THIS TIME.
[2020-03-25] MEDS ORDERED: AVAPRO75 MG PO (21:40)
[2020-03-25] MEDS ORDERED: BUPROPION HCL75 MG PO (21:40)
[2020-03-25] MEDS ORDERED: MOBIC7.5 MG PO (21:41)
[2020-03-25] MEDS ORDERED: CADUET 2.5 MG/11 TAB PO (21:41)
--- NOTE | 2020-03-25 23:51 | NUR ---
PT C/O CHEST PAIN. TOLD PT HE HAS PRN NITRO, PT REFUSES TO TAKE ANY MORE NITRO. PT IS 100 SINUS RYTHM ON THE MONITOR. CL IN REACH, BED IN LOWEST POSITION.
[2020-03-26 00:04] LABS: CKMB 3.9 U/L (0.0-3.6); CREATINE KINASE 167 UL (21-232)
[2020-03-26 00:06] LABS: TROPONIN-I 0.017 ng/mL (0.000-0.060)
[2020-03-26 05:10] LABS: BASOPHILS 0.1 % (0-2); EOSINOPHILS 0.5 % (0-7); HEMATOCRIT 42.3 % (42.0-54.0); HEMOGLOBIN 14.3 g/dL (13.5-17.5); IMMATURE GRANULOCYTES 0.3 % (0-5); MCH 33.9 pg (26.0-34.0); MCHC 33.8 g/dL (31.0-37.0); MCV 100.2 fL (80.0-100.0); MEAN PLATELET VOLUME 9.3 fL (7.4-10.4); MONOCYTES 8.5 % (2-11); NEUTROPHILS 77.6 % (40-80); PLATELET COUNT 198 10x3/uL (130-400); RBC 4.22 10x6/uL (4.20-6.10)
[2020-03-26 05:16] VITALS: BP 176/88
[2020-03-26 05:18] LABS: WBC 13.5 10x3/uL (4.8-10.8)
[2020-03-26 05:50] LABS: ALKALINE PHOSPHATASE 77 U/L (30-120); ALT (SGPT) 42 U/L (10-68); CALC OSMOLALITY 279 mosm/kg (275-300); CALCIUM 8.1 mg/dL (8.5-10.1); CARBON DIOXIDE 27.4 mmol/L (21.0-32.0); CHLORIDE - SERUM 105 mmol/L (98-107); CKMB 3.8 U/L (0.0-3.6); CREATINE KINASE 140 UL (21-232); GLUCOSE 76 mg/dL (74-106); PROTEIN - SERUM 6.6 g/dL (6.4-8.2); SODIUM 140 mmol/L (136-145); TROPONIN-I 0.042 ng/mL (0.000-0.060); UREA NITROGEN 18 mg/dL (7-18); eGFR NON AFRICAN AMERICAN 83 mL/min (90-120)
[2020-03-26 05:52] LABS: POTASSIUM - SERUM 3.5 mmol/L (3.5-5.1)
[2020-03-26 09:36] VITALS: BP 173/82
[2020-03-26 13:49] VITALS: Ht 167.6 cm; Wt 77.1 kg
[2020-03-26 14:24] VITALS: BP 133/86
[2020-03-26 20:00] VITALS: BP 177/84
--- NOTE | 2020-03-26 20:01 | NUR ---
OBSERVED FROM DOOR AND SPOKE WITH PT EXPRESSED NEEDS THAT WILL BE SEEN TO BED IS LOW PT IS ALERT AND OX4
--- NOTE | 2020-03-26 22:12 | NUR ---
PT IS NEG AND REMOVED FROM ISOLATION
[2020-03-27 04:00] VITALS: BP 191/97
[2020-03-27 06:17] LABS: BASOPHILS 0.1 % (0-2); EOSINOPHILS 0.5 % (0-7); HEMATOCRIT 42.9 % (42.0-54.0); HEMOGLOBIN 14.2 g/dL (13.5-17.5); IMMATURE GRANULOCYTES 0.3 % (0-5); LYMPHOCYTES 11.2 % (15-50); MCH 33.8 pg (26.0-34.0); MCHC 33.1 g/dL (31.0-37.0); MCV 102.1 fL (80.0-100.0); MEAN PLATELET VOLUME 9.6 fL (7.4-10.4); MONOCYTES 7.4 % (2-11); NEUTROPHILS 80.5 % (40-80); PLATELET COUNT 185 10x3/uL (130-400)
[2020-03-27 06:53] LABS: ALBUMIN 2.9 g/dL (3.4-5.0); ALKALINE PHOSPHATASE 86 U/L (30-120); ALT (SGPT) 36 U/L (10-68); BILIRUBIN - TOTAL 0.78 mg/dL (0.2-1.3); CALCIUM 8.5 mg/dL (8.5-10.1); CHLORIDE - SERUM 105 mmol/L (98-107); GLUCOSE 104 mg/dL (74-106); MAGNESIUM - SERUM 1.8 mg/dL (1.8-2.4); POTASSIUM - SERUM 3.5 mmol/L (3.5-5.1); PROTEIN - SERUM 6.8 g/dL (6.4-8.2); SODIUM 141 mmol/L (136-145); eGFR NON AFRICAN AMERICAN 83 mL/min (90-120)
[2020-03-27 06:59] LABS: CALC OSMOLALITY 280 mosm/kg (275-300); UREA NITROGEN 12 mg/dL (7-18)
--- NOTE | 2020-03-27 07:10 | NUR ---
REPORT RECEIVED FROM CALCINE FURNACE LOADER AND PATIENT CARE ASSUMED. PATIENT LAYING IN BED ON BACK AWAKE, ALERT AND ORIENTED X 4. PATIENT IS STABLE AND VSS. PATIENT DENIES ANY NEEDS OR PAIN. WILL CONTINUE WITH PLAN OF CARE. SR UP X 2 BED IN LOW POSITION AND CALL LIGHT IN REACH.
--- NOTE | 2020-03-27 09:30 | NUR ---
INFORMED BY RITA CLARKNATURAL GAS INSPECTOR THAT SHE LOWERED 02NC FROM 4LNC TO 2L NC. INSTRUCTED THIS NURSE TO MONITOR AND LET HER KNOW HOW PATIENT DOES. PATIENT DESATED TO 87%. O2NOW AT 4LNC WITH 02 AT 93%. INFORMED RITA CLARK CM.
[2020-03-27 14:23] LABS: CHOL - HDL RATIO 1.9 ratio (2.3-4.9); LDL-HDL RATIO 0.7 ratio (1.5-3.5)
[2020-03-27 17:38] LABS: BILIRUBIN NEGATIVE (NEGATIVE); GLUCOSE NEGATIVE (NEGATIVE); KETONE NEGATIVE (NEGATIVE); NITRITE NEGATIVE (NEGATIVE); UROBILINOGEN NORMAL (NORMAL)
--- NOTE | 2020-03-27 19:00 | NUR ---
REPORT RECEIVED, WILL CONTINUE POC. PATIENT IS AAOX4, UP IN ROOM. NO S/S OF DISTRESS OBSERVED, RR EVEN AND UNLABORED ON ROOM AIR. PATIENT DENIES NEEDS AT THIS TIME. CL IN REACH, BED LOCKED AND LOWERED. WILL CTM.
[2020-03-27 19:35] LABS: CKMB 3.9 U/L (0.0-3.6); CREATINE KINASE 125 UL (21-232)
[2020-03-27 20:00] VITALS: BP 179/87
[2020-03-27 23:56] LABS: CKMB 3.3 U/L (0.0-3.6); CREATINE KINASE 117 UL (21-232); TROPONIN-I 0.027 ng/mL (0.000-0.060)
--- NOTE | 2020-03-28 01:59 | NUR ---
I have reviewed this patient and I concur with the Shift Assessment completed by the Licensed Practical Nurse today this shift.
[2020-03-28 04:00] VITALS: BP 160/105
[2020-03-28 06:22] LABS: BASOPHILS 0.1 % (0-2); EOSINOPHILS 1.8 % (0-7); HEMATOCRIT 42.1 % (42.0-54.0); HEMOGLOBIN 13.7 g/dL (13.5-17.5); IMMATURE GRANULOCYTES 0.1 % (0-5); LYMPHOCYTES 16.8 % (15-50); MCH 32.9 pg (26.0-34.0); MCHC 32.5 g/dL (31.0-37.0); MCV 101.2 fL (80.0-100.0); MEAN PLATELET VOLUME 9.8 fL (7.4-10.4); NEUTROPHILS 71.2 % (40-80); PLATELET COUNT 181 10x3/uL (130-400); RBC 4.16 10x6/uL (4.20-6.10); RDW 12.7 % (11.5-14.5); WBC 9.7 10x3/uL (4.8-10.8)
[2020-03-28 06:59] LABS: ALBUMIN 2.7 g/dL (3.4-5.0); ALKALINE PHOSPHATASE 81 U/L (30-120); ALT (SGPT) 31 U/L (10-68); CALC OSMOLALITY 277 mosm/kg (275-300); CALCIUM 8.5 mg/dL (8.5-10.1); CARBON DIOXIDE 30.1 mmol/L (21.0-32.0); CHLORIDE - SERUM 104 mmol/L (98-107); CKMB 3.1 U/L (0.0-3.6); CREATINE KINASE 97 UL (21-232); CREATININE - SERUM 0.9 mg/dL (0.6-1.3); GLUCOSE 92 mg/dL (74-106); MAGNESIUM - SERUM 1.7 mg/dL (1.8-2.4); POTASSIUM - SERUM 3.4 mmol/L (3.5-5.1); PROTEIN - SERUM 6.6 g/dL (6.4-8.2); SODIUM 140 mmol/L (136-145); TROPONIN-I 0.033 ng/mL (0.000-0.060); UREA NITROGEN 10 mg/dL (7-18); eGFR NON AFRICAN AMERICAN > 90 mL/min (90-120)
[2020-03-28 09:26] VITALS: BP 163/100
--- NOTE | 2020-03-28 13:24 | NUR ---
Nutrition Follow-up: Pt reports good appetite/PO intake; ate majority of breakfast this AM. No nausea at time of visit this AM but states he has been having intermittent nausea with sudden onset x ~1 year. Also reports difficulty having BMs since hernia repair. Missing teeth but denies chewing/swallowing difficulties. Diet: Cardiac Wt: 160# (03/26) Last BM: 03/27 Labs noted: K+ 3.4, mg 1.7, Alb 2.7 Meds noted: Miralax, Protonix, electrolyte protocol -Monitor wt; noted daily wts ordered. -Discussed adequate fiber/fluid intake to encourage normal BMs; pt v/u. -RD following.
[2020-03-28 15:52] VITALS: BP 153/84
--- NOTE | 2020-03-28 19:39 | NUR ---
RPEORT RECEIVED AND ROUNDING COMPLETE. PATIENT ON CELL PHONE WHEN I ENTERED ROOM, STATES HE HAS NO NEEDS AT THIS TIME. PATIENT UP AND WALKING AROUND HIS ROOM. WEARING NASAL CANNULA WITH 02 AT 2L. LEFT AC PIV THAT IS SALINE LOCKED. CALL LIGHT LAYING ON THE BED AND BED IN LOWEST LOCKED POSITION. PATIENT SHOWED NO S/SX OF DISTRESS OR LABORED BREATHING.
[2020-03-28 20:00] VITALS: BP 157/91
[2020-03-29] VITALS: BP 167/78
[2020-03-29 04:00] VITALS: BP 158/73
[2020-03-29 06:19] LABS: BASOPHILS 0.2 % (0-2); EOSINOPHILS 2.1 % (0-7); HEMATOCRIT 41.1 % (42.0-54.0); HEMOGLOBIN 13.7 g/dL (13.5-17.5); IMMATURE GRANULOCYTES 0.7 % (0-5); LYMPHOCYTES 21.8 % (15-50); MCH 33.6 pg (26.0-34.0); MCHC 33.3 g/dL (31.0-37.0); MCV 100.7 fL (80.0-100.0); MEAN PLATELET VOLUME 9.6 fL (7.4-10.4); MONOCYTES 10.4 % (2-11); NEUTROPHILS 64.8 % (40-80); PLATELET COUNT 196 10x3/uL (130-400); RBC 4.08 10x6/uL (4.20-6.10); RDW 12.6 % (11.5-14.5); WBC 10.3 10x3/uL (4.8-10.8)
[2020-03-29 06:53] LABS: ALBUMIN 2.7 g/dL (3.4-5.0); ALKALINE PHOSPHATASE 73 U/L (30-120); BILIRUBIN - TOTAL 0.39 mg/dL (0.2-1.3); CALCIUM 8.8 mg/dL (8.5-10.1); CARBON DIOXIDE 31.1 mmol/L (21.0-32.0); CHLORIDE - SERUM 102 mmol/L (98-107); GLUCOSE 85 mg/dL (74-106); MAGNESIUM - SERUM 1.5 mg/dL (1.8-2.4); POTASSIUM - SERUM 3.6 mmol/L (3.5-5.1); PROTEIN - SERUM 6.6 g/dL (6.4-8.2); SODIUM 137 mmol/L (136-145); eGFR NON AFRICAN AMERICAN 83 mL/min (90-120)
[2020-03-29 06:54] LABS: ALT (SGPT) 40 U/L (10-68); CALC OSMOLALITY 274 mosm/kg (275-300); UREA NITROGEN 17 mg/dL (7-18)
--- NOTE | 2020-03-29 08:00 | NUR ---
PT RECEIVED AWAKE AND ALERT. IV RESITED, NUC MED IN ROOM FOR INJECTION.
[2020-03-29 15:09] VITALS: BP 116/75
--- NOTE | 2020-03-29 20:14 | NUR ---
RECEIVED BEDSIDE SHIFT REPORT. ALERT AND ORIENTED X4. HAS BEEN UP AMBULATING AROUND [place]ALL[place]. NOT WEARING 02 AT THIS TIME. IV TO RT WRIST. TELEMETRY IN PLACE. DENIES ANY NEEDS AT THIS TIME.
[2020-03-29 20:50] VITALS: BP 148/79
[2020-03-30 00:49] VITALS: BP 139/84
[2020-03-30 05:18] VITALS: BP 164/81
--- NOTE | 2020-03-30 07:56 | NUR ---
PT AWAKE AND ORIENTED, LYING IN BED WATCHING TV. NO COMPLAINTS OR CONCERNS AT THIS TIME. CL INR EACH,SRX2. ALL QUESTIONS ANSWERED TO THE BEST OF MY ABILITY.CL IN REACH,S RX2.
[2020-03-30 08:11] LABS: BASOPHILS 0.2 % (0-2); EOSINOPHILS 0.6 % (0-7); HEMATOCRIT 41.5 % (42.0-54.0); HEMOGLOBIN 13.8 g/dL (13.5-17.5); IMMATURE GRANULOCYTES 0.6 % (0-5); LYMPHOCYTES 17.7 % (15-50); MCH 33.4 pg (26.0-34.0); MCHC 33.3 g/dL (31.0-37.0); MCV 100.5 fL (80.0-100.0); MEAN PLATELET VOLUME 9.8 fL (7.4-10.4); MONOCYTES 12.1 % (2-11); NEUTROPHILS 68.8 % (40-80); PLATELET COUNT 232 10x3/uL (130-400); RBC 4.13 10x6/uL (4.20-6.10); RDW 12.6 % (11.5-14.5); WBC 11.4 10x3/uL (4.8-10.8)
[2020-03-30 08:15] VITALS: BP 172/82
[2020-03-30 08:48] LABS: ALBUMIN 2.8 g/dL (3.4-5.0); ALKALINE PHOSPHATASE 92 U/L (30-120); ALT (SGPT) 68 U/L (10-68); BILIRUBIN - TOTAL 0.27 mg/dL (0.2-1.3); CALC OSMOLALITY 274 mosm/kg (275-300); CALCIUM 9.1 mg/dL (8.5-10.1); CARBON DIOXIDE 29.9 mmol/L (21.0-32.0); CHLORIDE - SERUM 101 mmol/L (98-107); GLUCOSE 80 mg/dL (74-106); MAGNESIUM - SERUM 1.7 mg/dL (1.8-2.4); POTASSIUM - SERUM 3.7 mmol/L (3.5-5.1); PROTEIN - SERUM 6.7 g/dL (6.4-8.2); SODIUM 137 mmol/L (136-145); UREA NITROGEN 19 mg/dL (7-18); eGFR NON AFRICAN AMERICAN 83 mL/min (90-120)
--- NOTE | 2020-03-30 10:22 | NUR ---
PT AWAKE AND ORIENTED, REQUESTED A SHOWER. PT TOOK ONE UNASSISTED. COMPLAINTS OF CHEST PAIN STATING NO ONE HAS TOLD HIM WHAT IS WRONG WITH HIM. WILL LOOK INTO NOTES AT GIVEN OPPORTUNITY. CL IN REACH, SRX2.
[2020-03-30 11:23] VITALS: BP 138/72
[2020-03-30 15:44] VITALS: BP 136/86
[2020-03-30] MEDS ORDERED: LEVOFLOXACIN500 MG PO (15:48)
[2020-03-30] MEDS ORDERED: PREDNISONE10 MG PO (15:51)
[2020-03-30] MEDS ORDERED: INDOCIN25 MG PO (15:55)
--- NOTE | 2020-03-30 17:49 | NUR ---
PT ESCORTED OUT TO CAR VIA WHEELCHIAR FRIEND DRIVING.
--- NOTE | 2020-03-31 21:49 | MORECARE ---
CASE MANAGEMENT DISCHARGE SUMMARY PATIENT: KAUSHAL ARTHUR UNIT: [id number] ADM DATE: 03/25/20 AGE: 54 : [birth year] SEX: M ROOM/BED: D.2134 AUTHOR: SOPHY CHURCH PHYSICIAN: REFERRING PHYSICIAN: GERSON HUFF MD DATE OF SERVICE: 03/31/20 Discharge Plan Patient Name: KAUSHAL ARTHUR Facility: [facility]:[place] : 1965 Planned Disposition: Home Anticipated Discharge Date: Discharge Date: 03/30/2020 Expected LOS: Initial Reviewer: [email or web address] Initial Review Date: 03/25/2020 Generated: 03/31/20 10:49 pm Patient Name: KAUSHAL ARTHUR Page 68502 at 2149 All edits/amendments must be made on the electronic document DICTATION DATE: 03/31/202148 RELAY TELEGRAPHER: MARY 03/31/202148 RPT#: [id number] DC DATE:03/30/20 STATUS: DIS IN [address] [facility] [place] [address] END OF REPORT
--- NOTE | 2020-03-31 21:56 | MORECARE ---
CASE MANAGEMENT DISCHARGE SUMMARY PATIENT: KAUSHAL ARTHUR UNIT: [id number] ADM DATE: 03/25/20 AGE: 54 : 69 SEX: M ROOM/BED: D.2456 AUTHOR: LYNNETTE,DOC PHYSICIAN: REFERRING PHYSICIAN: GERSON HUFF MD DATE OF SERVICE: 03/31/20 Discharge Plan Patient Name: KAUSHAL ARTHUR Facility: [facility]:[place] : 1965 Planned Disposition: Home Anticipated Discharge Date: Discharge Date: 03/30/2020 Expected LOS: Initial Reviewer: [email or web address] Initial Review Date: 03/25/2020 Generated: 03/31/20 10:56 pm Comments DCP- Discharge Planning Updated by [email or web address]: Pushpa Davenport on 03/31/20 8:[address] LATE EMTRY 03/30/20 Patient Name: KAUSHAL ARTHUR Admission Status: ER Accout number: [id number] Admission Date: 03-25-2020 : 1965 Admission Diagnosis:CHEST PAIN, UNSPECIFIED Attending: CARLITA Current LOS: 5 Anticipated DC Date: Planned Disposition: Home Primary Insurance: [employer] EXCHANGE Discharge Planning Comments: CM met with patient to complete initial dc planning assessment. CM educated patient on the CM role and verbal consent given by patient to complete assessment. Patient lives at home with family. Patient is independent. At discharge patient plans to return home and feels this is a safe discharge. CM discussed availability of home health, rehab services, and medical equipment. Patient will have family to transport home. Patient denied known discharge needs at this time. CM will continue to follow and will assist as needed with dc plans/needs. Hub Cutter: Pushpa Davenport DCPIA - Discharge Planning Initial Assessment Updated by [email or web address]: Pushpa Davenport on 03/31/20 9:49 pm * Is the patient Alert and Oriented? Yes * How many steps to enter\exit or inside your home? 2 FLIGHTS * PCP [facility] * Pharmacy [facility] * Preadmission Environment Home with Family * ADLs Independent * Equipment Nebulizer * List name and contact numbers for known caregivers / representatives who currently or will assist patient after discharge: EDUARDO ARTHUR - - [phone] * Verbal permission to speak to the caregivers and representatives has been obtained from the patient. Yes * Community resources currently utilized None * Additional services required to return to the preadmission environment? No * Can the patient safely return to the preadmission environment? Yes * Has this patient been hospitalized within the prior 30 days at any hospital? No Last DP export: 03/31/20 8:49 p Patient Name: KAUSHAL ARTHUR Page 68024 at 215 All edits/amendments must be made on the electronic document DICTATION DATE: 03/31/202155 INSPECTOR MOTOR VEHICLES: MARY 03/31/202155 RPT#: [id number] [place] DATE:03/30/20 STATUS: DIS IN [facility] [address] [place] [address] END OF REPORT
== END 2020-03-30 17:56 | disposition home or self-care (01) | DRG 190 ==
LOC: D.ER 16:37 → D.M2 18:56
PROVIDERS: Family Medicine; ADMIT Family Medicine; ATTEND Family Medicine
DX: J43.9 Emphysema, unspecified (principal); J18.9 Pneumonia, unspecified organism; F17.203 Nicotine dependence unspecified, with withdrawal; J45.909 Unspecified asthma, uncomplicated; R07.81 Pleurodynia; I10 Essential (primary) hypertension; D75.89 Other specified diseases of blood and blood-forming organs